=== PATIENT | female | born 1950 | race American Indian/Alaskan Native ===

== ENCOUNTER 2017-06-16 18:22 | Inpatient (IN) | payer OTHER, MEDICARE ==
[2017-06-16] MEDS ORDERED: PROVENTIL IH ONE (20:47)
[2017-06-16] MEDS ORDERED: ATROVENT IH ONE (20:47)
[2017-06-16] MEDS ORDERED: MAGNESIUM SULFATE 2GM/50ML 2 GM/50 ML BAG IV ONE (20:50)
[2017-06-16 22:23] LABS: Hemoglobin 10.5 gm/dl (10.1-14.3); Mean Corpuscular HGB Conc 33 % (30-34); Mean Corpuscular Hemoglobin 27 pg (28-32); Mean Corpuscular Volume 83 fl (79-97); Platelet Count 306 K/mm3 (140-440); Red Blood Count 3.84 M/mm3 (3.65-5.03); Red Cell Distribution Width 13.9 % (13.2-15.2)
--- NOTE | 2017-06-16 22:25 | XRay Report ---
FINAL REPORT PROCEDURE: Chest. TECHNIQUE: Portable AP view. HISTORY: Shortness of breath. COMPARISON: No prior studies are available for comparison. FINDINGS: The heart and mediastinum appear normal. There calcification in the aortic arch. The lungs are grossly clear. There is mild elevation of the left hemidiaphragm. The soft tissues and regional skeleton are unremarkable. IMPRESSION: No evidence of acute disease.
[2017-06-16 22:37] LABS: Calcium 7.9 mg/dL (8.4-10.2)
--- NOTE | 2017-06-16 22:50 | Emergency Department Report ---
ED Asthma HPI - General Chief Complaint: Adult Asthma Stated Complaint: EXACERBATION ASTHMA Time Seen by Provider: 06/16/17 20:35 Source: patient, EMS Mode of arrival: Stretcher Limitations: No Limitations - History of Present Illness Initial Comments: 67-year-old female past medical history asthma (denies previous intubations), diabetes, chronic renal insufficiency, and anemia presents with complaints of persistent wheezing and shortness of breath despite recent outpatient treatment. Patient was sent from [facility] for admission due to persistent asthma exacerbated. Patient was seen by the office on the treated with nebulized treatment and 5 day course of steroids. Patient be presented today without improvement and having persistent wheezing and dry cough. She received albuterol 10 mg and Atrovent 1 mg, 1 L normal saline, Solu-Medrol 125mg, azithromycin 500mg by mouth and IV Rocephin 1 g prior to arrival. Patient had no improvement and respiratory symptoms and required admission to the hospital. There were no beds at [facility] so patient was sent here to be admitted and for further treatment. - Related Data Home Medications Medication Instructions Recorded Confirmed Last Taken Diltiazem [CarDIZEM] 60 mg PO BID 06/16/17 06/16/17 Unknown Epoetin Bradley [Procrit] 40,000 unit IJ Q4W 06/16/17 06/16/17 Unknown Folic Acid [Folvite] 1 mg PO 4XW 06/16/17 06/16/17 Unknown HYDROcodone/APAP 7.5-325 [[place] 1 tab PO BID 06/16/17 06/16/17 Unknown 7.5-325 mg TAB] ISOSORBIDE MONOnitrate [Imdur ER] 30 mg PO DAILY 06/16/17 06/16/17 Unknown Spironolactone [Aldactone] 25 mg PO DAILY 06/16/17 06/16/17 Unknown Terazosin HCl 10 mg PO HS 06/16/17 06/16/17 Unknown hydrALAZINE [Apresoline TAB] 100 mg PO Q8H 06/16/17 06/16/17 Unknown Allergies Allergy/AdvReac Type Severity Reaction Status Date / Time No Known Allergies Allergy Unverified 06/16/17 20:29 ED Review of Systems ROS: Stated complaint: EXACERBATION ASTHMA Other details as noted in HPI Comment: All other systems reviewed and negative Other: Constitutional: No fevers chills Eyes: No eye pain visual changes ENT: No ear pain or throat pain Neck: Denies pain Respiratory: As per HPI Cardiovascular: Denies chest pain, palpitations, syncope GI: Denies abdominal pain, nausea, vomiting, diarrhea : Denies dysuria Musculoskeletal: Denies back pain, joint swelling Skin: Denies rash, lesions, erythema Neurologic: Denies headache, numbness, weakness Psychiatric: Denies suicidal ideation, hallucinations ED Past Medical Hx - Past Medical History Previous Medical History?: Yes Hx Hypertension: Yes Hx Congestive Heart Failure: Yes (diastolic chf/right heart failure EF 55% ) Hx Diabetes: Yes (2) Hx Renal Disease: Yes (chronic renal insuffency) Hx Asthma: Yes Additional medical history: anemia. Hypercholesteremia. Osteoarthritis. Vitamin D deficiency - Family History Family history: diabetes, hypertension - Social History Smoking Status: Former Smoker (quit in 1985) Substance Use Type: None - Medications Home Medications: Home Medications Medication Instructions Recorded Confirmed Last Taken Type Diltiazem [CarDIZEM] 60 mg PO BID 06/16/17 06/16/17 Unknown History Epoetin Bradley [Procrit] 40,000 unit IJ Q4W 06/16/17 06/16/17 Unknown History Folic Acid [Folvite] 1 mg PO 4XW 06/16/17 06/16/17 Unknown History HYDROcodone/APAP 7.5-325 [[place] 1 tab PO BID 06/16/17 06/16/17 Unknown History 7.5-325 mg TAB] ISOSORBIDE MONOnitrate [Imdur ER] 30 mg PO DAILY 06/16/17 06/16/17 Unknown History Spironolactone [Aldactone] 25 mg PO DAILY 06/16/17 06/16/17 Unknown History Terazosin HCl 10 mg PO HS 06/16/17 06/16/17 Unknown History hydrALAZINE [Apresoline TAB] 100 mg PO Q8H 06/16/17 06/16/17 Unknown History ED Physical Exam - General Limitations: No Limitations - Other Other exam information: General: No limitations, patient is alert in no acute distress Head exam: Atraumatic, normocephalic Eyes exam: Normal appearance ENT: Moist mucous membrane, normal oropharynx Neck exam: Normal inspection, full range of motion, no meningismus nontender Respiratory exam: Breathlessness while speaking, tachypnea, my associate muscle use, significant expiratory wheezing with fair air movement Cardiovascular: Normal rate and rhythm, normal heart sounds Abdomen: Soft, nondistended, and nontender, with normal bowel sounds, no rebound, or guarding Extremity: Full range of motion normal inspection no deformity, no calf tenderness or edema Back: Normal Inspection, full range of motion, no tenderness Neurologic: Alert, oriented x3, cranial nerves intact, no motor or sensory deficit Psychiatric: normal affect, normal mood Skin: Warm, dry, intact ED Course Vital Signs 06/16/17 06/16/17 06/16/17 20:29 20:30 21:35 Temperature 98.8 F 98.8 F Pulse Rate 67 67 Pulse Rate [ 70 Anterior Bilateral Throughout] Respiratory 22 22 Rate Respiratory 20 Rate [Anterior Bilateral Throughout] Blood Pressure 190/68 Blood Pressure 190/68 [Right] O2 Sat by Pulse 100 100 Oximetry - Reevaluation(s) Reevaluation #1: 06/16/17 23:15 O2 sat 100% on 2 L nasal cannula. Room air sat not documented on triage - Consultations Consultation #1: 06/16/17 22:[address] Younger with [facility]. Approved admission to the hospital here since no beds at their facility. States previous creatinine on record was 2.1 ED Medical Decision Making - Lab Data Result diagrams: 06/16/17 22:05 06/16/17 22:05 Lab Results 06/16/17 06/16/17 06/16/17 Range/Units 22:05 22:05 22:05 WBC 16.7 H (4.5-11.0) K/mm3 RBC 3.84 (3.65-5.03) M/mm3 Hgb 10.5 (10.1-14.3) gm/dl Hct 32.0 (30.3-42.9) % MCV 83 (79-97) fl MCH 27 L (28-32) pg MCHC 33 (30-34) % RDW 13.9 (13.2-15.2) % Plt Count 306 (140-440) K/mm3 Seg Neutrophils % Magneto Repairer Sodium 139 (137-145) mmol/L Potassium 4.2 (3.6-5.0) mmol/L Chloride 103.3 (98-107) mmol/L Carbon Dioxide 22 (22-30) mmol/L Anion Gap 18 mmol/L BUN 64 H (7-17) mg/dL Creatinine 1.8 H (0.7-1.2) mg/dL Estimated GFR 34 ml/min BUN/Creatinine Ratio 36 % Glucose 266 H (65-100) mg/dL Lactic Acid 0.70 (0.7-2.0) mmol/L Calcium 7.9 L (8.4-10.2) mg/dL - EKG Data EKG shows normal: axis - Radiology Data Radiology results: report reviewed (read by radiologist chest x-ray: No evidence of acute disease) - Medical Decision Making Persistent asthma exacerbation/status asthmaticus No improvement with steroids, magnesium, and nebs No infiltrate on chest x-ray Leukocytosis likely secondary to recent steroid Patient received Rocephin and azithromycin prior to arrival Blood cultures have been ordered and pending Plans admit to hospital for further treatment Admission Approved by [facility] physician Hospitalist informed Renal sufficiency Baseline 2.1 as reported by [facility] physician therefore improved today Elevated BUN patient does take torsemide Hypertension Chronic Asymptomatic currently Diabetes mild hyperglycemia - Differential Diagnosis pneumonia, bronchitis, asthma, CHF Critical Care Time: No Critical care attestation.: If time is entered above; I have spent that time in minutes in the direct care of this critically ill patient, excluding procedure time. ED Disposition Clinical Impression: Asthmatic bronchitis with status asthmaticus, HTN (hypertension), Diabetes, Renal insufficiency, Elevated BUN Disposition: OP ADMIT IP TO THIS HOSP Is pt being admited?: Yes Condition: Stable Time of Disposition: 22:50 (DR Garrison/hosp)
[2017-06-16] MEDS ORDERED: TYLENOL PO PRN (23:40)
[2017-06-16] MEDS ORDERED: D50W (25GM) Syringe IV PRN (23:40)
[2017-06-16] MEDS ORDERED: DULCOLAX PR PRN (23:40)
[2017-06-16] MEDS ORDERED: MILK OF MAGNESIA PO PRN (23:40)
[2017-06-16] MEDS ORDERED: ZOFRAN IV PRN (23:40)
--- NOTE | 2017-06-16 23:43 | History and Physical Report ---
History of Present Illness Date of examination: 06/16/17 History of present illness: 67-year-old woman with history of hypertension, diabetes, asthma, chronic renal disease was sent from [place] for evaluation of asthma. She was seen at the [place] facility on June 07 for shortness of breath and cough productive of brown phlegm. She was given nebulizer treatment and oral steroids and discharged to home. She completed her medication for 5 days, his symptoms worsened so she returned to [place] today for further evaluation Review Of Systems: Constitutional: no weight loss Ears, eyes, nose, mouth and throat: no nasal congestion, no nasal discharge, no sinus pressure, blurry vision, diplopia Neck: No neck pain or rigidity. Cardiovascular: + chest pain, palpitations Respiratory: No shortness of breath, cough Gastrointestinal: No abdominal pain, hematochezia Genitourinary : no dysuria, frequency , hematuria Musculoskeletal: no muscle ache Integumentary: no rash, no pruritis Neurological: no parathesias, focal weakness Endocrine: no cold or heat intolerance, no polyuria or polydipsia Hematologic/Lymphatic: no easy bruising, no easy bleeding, no gland swelling Allergic/Immunologic: no urticaria, no angioedema. PAST MEDICAL HISTORY:hypertension, diabetes, asthma, chronic renal disease PAST SURGICAL HISTORY:none FAMILY HISTORY:hypertension, diabetes SOCIAL HISTORY: Denies alcohol, tobacco or drug Medications and Allergies Allergies Allergy/AdvReac Type Severity Reaction Status Date / Time No Known Allergies Allergy Verified 06/16/17 23:45 Home Medications Medication Instructions Recorded Confirmed Last Taken Type Diltiazem [CarDIZEM] 60 mg PO BID 06/16/17 06/16/17 Unknown History Epoetin Bradley [Procrit] 40,000 unit IJ Q4W 06/16/17 06/16/17 Unknown History Folic Acid [Folvite] 1 mg PO 4XW 06/16/17 06/16/17 Unknown History HYDROcodone/APAP 7.5-325 [[place] 1 tab PO BID 06/16/17 06/16/17 Unknown History 7.5-325 mg TAB] ISOSORBIDE MONOnitrate [Imdur ER] 30 mg PO DAILY 06/16/17 06/16/17 Unknown History Spironolactone [Aldactone] 25 mg PO DAILY 06/16/17 06/16/17 Unknown History Terazosin HCl 10 mg PO HS 06/16/17 06/16/17 Unknown History hydrALAZINE [Apresoline TAB] 100 mg PO Q8H 06/16/17 06/16/17 Unknown History Active Meds: Active Medications Acetaminophen (Tylenol) 650 mg PO Q4H PRN PRN Reason: Pain MILD(1-3)/Fever >100.5/LÓPEZ Bisacodyl (Dulcolax) 10 mg CO QDAY PRN PRN Reason: Constipation unrelieved by MOM Dextrose (D50w (25gm) Syringe) 50 ml IV PRN PRN PRN Reason: Hypoglycemia Insulin Aspart (Novolog) 0 units SUB-Q ACHS RAY PRN Reason: Protocol Exam - Physical Exam Narrative exam: Gen. appearance: Patient lying in bed in no acute distress HEENT: Normocephalic/atraumatic, pupils equal round reactive to light, extra occular movement intact, no scleral icterus, no JVD or thyromegaly or nodule, neck is supple, mucous membrane moist, no erythema or exudate Heart: S1-S2, regular rate and rhythm Lungs: wheezingbilateral breathing comfortable Abdomen: Positive bowel sounds, nontender, nondistended, no organomegaly Extremities: No edema, cyanosis, clubbing Neuro:: Oriented 3 , cranial nerves II-12 intact, speech, motor intact Skin: No rash, nodules, warm dry - Constitutional Vitals: Temp Pulse Resp BP Pulse Ox 98.8 F 70 20 190/68 100 06/16/17 20:30 06/16/17 21:35 06/16/17 21:35 06/16/17 20:30 06/16/17 20:30 Results - Labs CBC & Chem 7: 06/16/17 22:05 06/16/17 22:05 Labs: Abnormal lab results 06/16/17 06/16/17 Range/Units 22:05 22:05 WBC 16.7 H (4.5-11.0) K/mm3 MCH 27 L (28-32) pg BUN 64 H (7-17) mg/dL Creatinine 1.8 H (0.7-1.2) mg/dL Glucose 266 H (65-100) mg/dL Calcium 7.9 L (8.4-10.2) mg/dL - Imaging and Cardiology EKG: image reviewed Chest x-ray: image reviewed Assessment and Plan Assessment COPD exacerbation with bronchitis Acute renal insufficiency on chronic Hypertension Diabetes type 2 Plan Admit to medicine Start high-dose IV steroids, nebulizer treatments, IV antibiotics Check fingersticks initiate insulin sliding scale Continue appropriate medications DVT prophylaxis
[2017-06-17 00:26] LABS: Band Neutrophils # (Manual) 0.3 K/mm3; Basophils % (Manual) 0 % (0.0-1.8); Eosinophils % (Manual) 0 % (0.0-4.3); Total Cells Counted 100
[2017-06-17 00:27] LABS: Anisocytosis 1+; Hypochromasia 1+
[2017-06-17] MEDS: NOVOLOG SUB-Q SCH ×4 (01:55→16:37)
[2017-06-17] MEDS: DUONEB *Not for PRN Use IH SCH ×4 (02:35→22:20)
[2017-06-17 05:37] LABS: Hematocrit 31.6 % (30.3-42.9); Hemoglobin 10.2 gm/dl (10.1-14.3); Mean Corpuscular HGB Conc 32 % (30-34); Mean Corpuscular Hemoglobin 27 pg (28-32); Mean Corpuscular Volume 84 fl (79-97); Platelet Count 296 K/mm3 (140-440); Red Blood Count 3.78 M/mm3 (3.65-5.03); Red Cell Distribution Width 14.1 % (13.2-15.2)
[2017-06-17 07:20] LABS: Band Neutrophils # (Manual) 0.4 K/mm3; Calcium 8.1 mg/dL (8.4-10.2); Eosinophils % (Manual) 0 % (0.0-4.3); Total Cells Counted 100
[2017-06-17 07:21] LABS: Anisocytosis 1+; Basophils % (Manual) 0 % (0.0-1.8); Hypochromasia 1+
[2017-06-17] MEDS ORDERED: ZITHROMAX 500 MG in NACL 0.9% 250ML 250 ML IV SCH (10:00)
[2017-06-17] MEDS ORDERED: PROCARDIA XL PO SCH (12:00)
[2017-06-17] MEDS: APRESOLINE PO SCH ×2 (12:02→21:33)
--- NOTE | 2017-06-17 15:00 | Consultation ---
History of Present Illness - Reason for Consult Consult date: 06/17/17 chronic renal failure Requesting physician: JULIO CESAR NEW - History of Present Illness 67-year-old woman with history of hypertension, diabetes, asthma, chronic renal disease was sent from [place] for evaluation of asthma. She was seen at the [place] facility on June 07 for shortness of breath and cough productive of brown phlegm. She was given nebulizer treatment and oral steroids and discharged to home. She completed her medication for 5 days, his symptoms worsened so she returned to [place] today for further evaluation Review Of Systems: Constitutional: no weight loss Ears, eyes, nose, mouth and throat: no nasal congestion, no nasal discharge, no sinus pressure, blurry vision, diplopia Neck: No neck pain or rigidity. Cardiovascular: + chest pain, palpitations Respiratory: No shortness of breath, cough Gastrointestinal: No abdominal pain, hematochezia Genitourinary : no dysuria, frequency , hematuria Musculoskeletal: no muscle ache Integumentary: no rash, no pruritis Neurological: no parathesias, focal weakness Endocrine: no cold or heat intolerance, no polyuria or polydipsia Hematologic/Lymphatic: no easy bruising, no easy bleeding, no gland swelling Allergic/Immunologic: no urticaria, no angioedema. PAST MEDICAL HISTORY:hypertension, diabetes, asthma, chronic renal disease PAST SURGICAL HISTORY:none FAMILY HISTORY:hypertension, diabetes SOCIAL HISTORY: Denies alcohol, tobacco or drug Medications and Allergies Allergies Allergy/AdvReac Type Severity Reaction Status Date / Time No Known Allergies Allergy Verified 06/16/17 23:45 Home Medications Medication Instructions Recorded Confirmed Last Taken Type Diltiazem [CarDIZEM] 60 mg PO BID 06/16/17 06/16/17 Unknown History Epoetin Bradley [Procrit] 40,000 unit IJ Q4W 06/16/17 06/16/17 Unknown History Folic Acid [Folvite] 1 mg PO 4XW 06/16/17 06/16/17 Unknown History HYDROcodone/APAP 7.5-325 [[place] 1 tab PO BID 06/16/17 06/16/17 Unknown History 7.5-325 mg TAB] ISOSORBIDE MONOnitrate [Imdur ER] 30 mg PO DAILY 06/16/17 06/16/17 Unknown History Spironolactone [Aldactone] 25 mg PO DAILY 06/16/17 06/16/17 Unknown History Terazosin HCl 10 mg PO HS 06/16/17 06/16/17 Unknown History hydrALAZINE [Apresoline TAB] 100 mg PO Q8H 06/16/17 06/16/17 Unknown History Active Meds: Active Medications Acetaminophen (Tylenol) 650 mg PO Q4H PRN PRN Reason: Pain MILD(1-3)/Fever >100.5/LÓPEZ Acetaminophen/Hydrocodone Bitart ([place] 7.5/325) 1 each PO BID [facility] Albuterol/Ipratropium (Duoneb *Not For Prn Use*) 1 ampul IH Q6HRT [facility] Last Admin: 06/17/17 14:22 Dose: Not Given Atorvastatin Calcium (Lipitor) 40 mg PO QHS [facility] Azithromycin (Zithromax) 500 mg PO QDAY [facility] Bisacodyl (Dulcolax) 10 mg HI QDAY PRN PRN Reason: Constipation unrelieved by MOM Carvedilol (Coreg) 25 mg PO BID [facility] Dextrose (D50w (25gm) Syringe) 50 ml IV PRN PRN PRN Reason: Hypoglycemia Diltiazem HCl (Cardizem) 60 mg PO BID [facility] Folic Acid (Folvite) 1 mg PO SuMoWeFr [facility] Hydralazine HCl (Apresoline) 100 mg PO Q8H [facility] Last Admin: 06/17/17 12:02 Dose: 100 mg Insulin Aspart (Novolog) 0 units SUB-Q ACHS [facility] PRN Reason: Protocol Last Admin: 06/17/17 12:00 Dose: 8 units Insulin Detemir (Levemir) 20 units SUB-Q QHS [facility] Isosorbide Mononitrate (Imdur) 30 mg PO DAILY [facility] Magnesium Hydroxide (Milk Of Magnesia) 30 ml PO Q4H PRN PRN Reason: Constipation Methylprednisolone Sodium Succinate (Solu-Medrol) 80 mg IV Q6HR [facility] Last Admin: 06/17/17 12:01 Dose: 80 mg Metolazone (Zaroxolyn) 5 mg PO QDAY [facility] Nifedipine (Procardia Xl) 90 mg PO QDAY [facility] Last Admin: 06/17/17 12:38 Dose: 90 mg Ondansetron HCl (Zofran) 4 mg IV Q8H PRN PRN Reason: N/V unrelieved by Reglan Prazosin HCl (Minipress) 5 mg PO Q12HR [facility] Spironolactone (Aldactone) 25 mg PO DAILY [facility] Torsemide (Demadex) 100 mg PO DAILY@0600 [facility] Exam - Vital Signs Vital signs: Vital Signs Resp Pulse Ox 22 100 06/16/17 20:00 06/16/17 20:00 - Physical Exam Narrative exam: Gen. appearance: Patient lying in bed in no acute distress HEENT: Normocephalic/atraumatic, pupils equal round reactive to light, extra occular movement intact, no scleral icterus, no JVD or thyromegaly or nodule, neck is supple, mucous membrane moist, no erythema or exudate Heart: S1-S2, regular rate and rhythm Lungs: wheezingbilateral breathing comfortable Abdomen: Positive bowel sounds, nontender, nondistended, no organomegaly Extremities: No edema, cyanosis, clubbing Neuro:: Oriented 3 , cranial nerves II-12 intact, speech, motor intact Skin: No rash, nodules, warm dry Results - Lab Results 06/17/17 05:02 06/17/17 05:02 Most recent lab results Calcium 8.1 mg/dL (8.4-10.2) L 06/17/17 05:02 Assessment and Plan Impression: * COPD exacerbation with bronchitis * Acute renal insufficiency on chronic * Hypertension * Diabetes type 2 Plan: * cr is at baseline * strict i/os * needs better BP and DM control * daily lytes * endorses history of cardiomyopathy, will check 2 d echo * avoid nephrotoxins * supportive care
[2017-06-17] MEDS ORDERED: APRESOLINE IV PRN (15:56)
--- NOTE | 2017-06-17 15:58 | Progress Note ---
Assessment and Plan Assessment and plan: 67-year-old woman with history of hypertension, diabetes, asthma, chronic renal disease was sent from [place] for evaluation of asthma for Ayaka Arizmendi of treatment that was done on June 07 at a [facility] facility. She denied any fever, generalized body pain and malaise. Although she appears lethargic on admission. Acute on chronic respiratory failure * Continue nebulizer treatment. Peak flow meter. Obtain pulmonary evaluation with an O2 as tolerated Asthma exacerbation with bronchitis * As noted above. Taper steroids. Acute kidney injury on chronic kidney disease likely secondary to vasomotor nephropathy ? Review of records did not indicate her baseline to me. * We'll obtain original evaluation. Patient reports she does not have a delivery clerk Hypertensive urgency * Resume home medications. Hydralazine when necessary. Diabetes mellitus with hyperglycemia * Likely elevated on elevated due to steroids. We'll hold oral and hypoglycemic agents and start patient on long-acting insulin. In addition to sliding scale Stable congestive heart failure patient unsure if systolic or diastolic * We'll obtain echocardiogram for further evaluation. Chronic opiate dependence syndrome * Resume home. Medications DVT and GI prophylaxis Plan of care discussed in detail with the patient's she verbalized understanding. History Interval history: Patient seen and examined this morning in no acute distress reports generalized body ache. She is chronically on pain medication. She reports mild improvement of shortness of breath. Hospitalist Physical - Physical exam Narrative exam: VITAL SIGNS: Reviewed. GENERAL: The patient appeared well nourished and normally developed. Otherwise lethargic appearing Vital signs as documented. HEAD: No signs of head trauma. EYES: Pupils are equal. Extraocular motions intact. EARS: Hearing grossly intact. MOUTH: Oropharynx is normal. NECK: No adenopathy, no JVD. CHEST: Chest with expiratory wheezing sounds bilaterally. No, rales, or rhonchi. CARDIAC: Regular rate and rhythm. S1 and S2, without murmurs, gallops, or rubs. VASCULAR: No Edema. Peripheral pulses normal and equal in all extremities. ABDOMEN: Soft, without detectable tenderness. No sign of distention. No rebound or guarding, and no masses palpated. Bowel Sounds normal. MUSCULOSKELETAL: Good range of motion of all major joints. Extremities without clubbing, cyanosis or edema. NEUROLOGIC EXAM: Alert and oriented x 3. No focal sensory or strength deficits. Speech normal. Follows commands. PSYCHIATRIC: Mood normal. SKIN: No rash or lesions. - Constitutional Vitals: Temp Pulse Resp BP Pulse Ox 98.6 F 99 H 20 198/82 100 06/17/17 13:49 06/17/17 13:49 06/17/17 13:49 06/17/17 13:49 06/17/17 13:49 Results - Labs CBC & Chem 7: 06/17/17 05:02 06/17/17 05:02 Labs: Laboratory Last Values WBC 19.0 K/mm3 (4.5-11.0) H 06/17/17 05:02 RBC 3.78 M/mm3 (3.65-5.03) 06/17/17 05:02 Hgb 10.2 gm/dl (10.1-14.3) 06/17/17 05:02 Hct 31.6 % (30.3-42.9) 06/17/17 05:02 MCV 84 fl (79-97) 06/17/17 05:02 MCH 27 pg (28-32) L 06/17/17 05:02 MCHC 32 % (30-34) 06/17/17 05:02 RDW 14.1 % (13.2-15.2) 06/17/17 05:02 Plt Count 296 K/mm3 (140-440) 06/17/17 05:02 Add Manual Diff Complete 06/17/17 05:02 Total Counted 100 06/17/17 05:02 Seg Neutrophils % Electric Tripper Machine Operator 06/17/17 05:02 Seg Neuts % (Manual) 84.0 % (40.0-70.0) H 06/17/17 05:02 Band Neutrophils % 2.0 % 06/17/17 05:02 Lymphocytes % (Manual) 12.0 % (13.4-35.0) L 06/17/17 05:02 Reactive Lymphs % (Man) 0 % 06/17/17 05:02 Monocytes % (Manual) 2.0 % (0.0-7.3) 06/17/17 05:02 Eosinophils % (Manual) 0 % (0.0-4.3) 06/17/17 05:02 Basophils % (Manual) 0 % (0.0-1.8) 06/17/17 05:02 Metamyelocytes % 0 % 06/17/17 05:02 Myelocytes % 0 % 06/17/17 05:02 Promyelocytes % 0 % 06/17/17 05:02 Blast Cells % 0 % 06/17/17 05:02 Nucleated RBC % Not Reportable 06/17/17 05:02 Seg Neutrophils # Man 16.0 K/mm3 (1.8-7.7) H 06/17/17 05:02 Band Neutrophils # 0.4 K/mm3 06/17/17 05:02 Lymphocytes # (Manual) 2.3 K/mm3 (1.2-5.4) 06/17/17 05:02 Abs React Lymphs (Man) 0.0 K/mm3 06/17/17 05:02 Monocytes # (Manual) 0.4 K/mm3 (0.0-0.8) 06/17/17 05:02 Eosinophils # (Manual) 0.0 K/mm3 (0.0-0.4) 06/17/17 05:02 Basophils # (Manual) 0.0 K/mm3 (0.0-0.1) 06/17/17 05:02 Metamyelocytes # 0.0 K/mm3 06/17/17 05:02 Myelocytes # 0.0 K/mm3 06/17/17 05:02 Promyelocytes # 0.0 K/mm3 06/17/17 05:02 Blast Cells # 0.0 K/mm3 06/17/17 05:02 WBC Morphology Not Reportable 06/17/17 05:02 Hypersegmented Neuts Not Reportable 06/17/17 05:02 Hyposegmented Neuts Not Reportable 06/17/17 05:02 Hypogranular Neuts Not Reportable 06/17/17 05:02 Smudge Cells Not Reportable 06/17/17 05:02 Toxic Granulation Not Reportable 06/17/17 05:02 Toxic Vacuolation Not Reportable 06/17/17 05:02 Dohle Bodies Not Reportable 06/17/17 05:02 Pelger-Huet Anomaly Not Reportable 06/17/17 05:02 Jacinto Rods Not Reportable 06/17/17 05:02 Platelet Estimate Appears normal 06/17/17 05:02 Clumped Platelets Not Reportable 06/17/17 05:02 Plt Clumps, EDTA Not Reportable 06/17/17 05:02 Large Platelets Not Reportable 06/17/17 05:02 Giant Platelets Not Reportable 06/17/17 05:02 Platelet Satelliting Not Reportable 06/17/17 05:02 Plt Morphology Comment Not Reportable 06/17/17 05:02 RBC Morphology Not Reportable 06/17/17 05:02 Dimorphic RBCs Not Reportable 06/17/17 05:02 Polychromasia Not Reportable 06/17/17 05:02 Hypochromasia 1+ 06/17/17 05:02 Poikilocytosis Not Reportable 06/17/17 05:02 Anisocytosis 1+ 06/17/17 05:02 Microcytosis Not Reportable 06/17/17 05:02 Macrocytosis Not Reportable 06/17/17 05:02 Spherocytes Not Reportable 06/17/17 05:02 Pappenheimer Bodies Not Reportable 06/17/17 05:02 Sickle Cells Not Reportable 06/17/17 05:02 Target Cells Not Reportable 06/17/17 05:02 Tear Drop Cells Not Reportable 06/17/17 05:02 Ovalocytes Not Reportable 06/17/17 05:02 Helmet Cells Not Reportable 06/17/17 05:02 [place] Bodies Not Reportable 06/17/17 05:02 [place] Rings Not Reportable 06/17/17 05:02 [place]ino Cells Not Reportable 06/17/17 05:02 Bite Cells Not Reportable 06/17/17 05:02 Crenated Cell Not Reportable 06/17/17 05:02 Elliptocytes Not Reportable 06/17/17 05:02 Acanthocytes (Spur) Not Reportable 06/17/17 05:02 Rouleaux Not Reportable 06/17/17 05:02 Hemoglobin C Crystals Not Reportable 06/17/17 05:02 Schistocytes Not Reportable 06/17/17 05:02 Malaria parasites Not Reportable 06/17/17 05:02 Dc Bodies Not Reportable 06/17/17 05:02 Hem Pathologist Commnt No 06/17/17 05:02 Sodium 139 mmol/L (137-145) 06/17/17 05:02 Potassium 4.4 mmol/L (3.6-5.0) 06/17/17 05:02 Chloride 99.6 mmol/L (98-107) 06/17/17 05:02 Carbon Dioxide 19 mmol/L (22-30) L 06/17/17 05:02 Anion Gap 25 mmol/L 06/17/17 05:02 BUN 66 mg/dL (7-17) H 06/17/17 05:02 Creatinine 1.9 mg/dL (0.7-1.2) H 06/17/17 05:02 Estimated GFR 32 ml/min 06/17/17 05:02 BUN/Creatinine Ratio 35 % 06/17/17 05:02 Glucose 356 mg/dL (65-100) H 06/17/17 05:02 POC Glucose 318 (70-105) H 06/17/17 11:03 Lactic Acid 0.70 mmol/L (0.7-2.0) 06/16/17 22:05 Calcium 8.1 mg/dL (8.4-10.2) L 06/17/17 05:02 - Imaging and Cardiology Chest x-ray: image reviewed (no acute pathology noted)
--- NOTE | 2017-06-17 16:04 | Consultation ---
History of Present Illness Consult date: 06/17/17 Requesting physician: LOBITO MULLER Consult reason: congestive heart failure History of present illness: The pt is a 67-year-old woman with a past medical history significant for heart failure in 07/2016, hypertension, diabetes, asthma, CKD. She is previously unknown to our practice. She is a [facility] pt and denies seeing a crystal attacher regularly. She presented with c/o "asthma attack", fever, chills and productive cough since 06/07/2017. She reports that she first presented to a [facility] facility on 06/07 after her first "asthma attack" and was given breathing treatments and oral steroids and sent home. However, her symptoms did not improve and thus she presented to a [facility] facility again yesterday where she reports that she has a CXR and was referred to [facility] for further eval/ management. Additionally, she c/o a bout of chest pain earlier today after she ate lunch. She describes the chest pain as a substernal and epigastric stabbing pain which was relieved by drinking hot tea. She denies any palpitations, n/v, diaphoresis, dizziness or syncope. Past History Past Medical History: diabetes, hypertension, other (asthma; CKD) Social history: smoking (former). denies: alcohol abuse, prescription drug abuse Medications and Allergies Allergies Allergy/AdvReac Type Severity Reaction Status Date / Time No Known Allergies Allergy Verified 06/16/17 23:45 Home Medications Medication Instructions Recorded Confirmed Last Taken Type Diltiazem [CarDIZEM] 60 mg PO BID 06/16/17 06/16/17 Unknown History Epoetin Bradley [Procrit] 40,000 unit IJ Q4W 06/16/17 06/16/17 Unknown History Folic Acid [Folvite] 1 mg PO 4XW 06/16/17 06/16/17 Unknown History HYDROcodone/APAP 7.5-325 [[place] 1 tab PO BID 06/16/17 06/16/17 Unknown History 7.5-325 mg TAB] ISOSORBIDE MONOnitrate [Imdur ER] 30 mg PO DAILY 06/16/17 06/16/17 Unknown History Spironolactone [Aldactone] 25 mg PO DAILY 06/16/17 06/16/17 Unknown History Terazosin HCl 10 mg PO HS 06/16/17 06/16/17 Unknown History hydrALAZINE [Apresoline TAB] 100 mg PO Q8H 06/16/17 06/16/17 Unknown History Active Meds: Active Medications Acetaminophen (Tylenol) 650 mg PO Q4H PRN PRN Reason: Pain MILD(1-3)/Fever >100.5/LÓPEZ Acetaminophen/Hydrocodone Bitart ([place] 7.5/325) 1 each PO BID [facility] Albuterol/Ipratropium (Duoneb *Not For Prn Use*) 1 ampul IH Q6HRT [facility] Last Admin: 06/17/17 14:22 Dose: Not Given Atorvastatin Calcium (Lipitor) 40 mg PO QHS [facility] Azithromycin (Zithromax) 500 mg PO QDAY [facility] Bisacodyl (Dulcolax) 10 mg [place] QDAY PRN PRN Reason: Constipation unrelieved by MOM Carvedilol (Coreg) 25 mg PO BID [facility] Dextrose (D50w (25gm) Syringe) 50 ml IV PRN PRN PRN Reason: Hypoglycemia Diltiazem HCl (Cardizem) 60 mg PO BID [facility] Folic Acid (Folvite) 1 mg PO SuMoWeFr [facility] Hydralazine HCl (Apresoline) 100 mg PO Q8H [facility] Last Admin: 06/17/17 12:02 Dose: 100 mg Hydralazine HCl (Apresoline) 10 mg IV Q4HR PRN PRN Reason: Hypertension Insulin Aspart (Novolog) 0 units SUB-Q ACHS [facility] PRN Reason: Protocol Last Admin: 06/17/17 12:00 Dose: 8 units Insulin Detemir (Levemir) 20 units SUB-Q QHS [facility] Isosorbide Mononitrate (Imdur) 30 mg PO DAILY [facility] Methylprednisolone Sodium Succinate (Solu-Medrol) 80 mg IV Q6HR [facility] Last Admin: 06/17/17 12:01 Dose: 80 mg Metolazone (Zaroxolyn) 5 mg PO QDAY [facility] Nifedipine (Procardia Xl) 90 mg PO QDAY [facility] Last Admin: 06/17/17 12:38 Dose: 90 mg Ondansetron HCl (Zofran) 4 mg IV Q8H PRN PRN Reason: N/V unrelieved by Reglan Prazosin HCl (Minipress) 5 mg PO Q12HR [facility] Spironolactone (Aldactone) 25 mg PO DAILY [facility] Torsemide (Demadex) 100 mg PO DAILY@0600 [facility] Review of Systems Constitutional: fever, chills, no weight loss, no weight gain Ears, nose, mouth and throat: no ear pain, no nose pain, no sinus pressure, no sinus pain Cardiovascular: chest pain, shortness of breath, dyspnea on exertion, high blood pressure, no orthopnea, no palpitations, no rapid/irregular heart beat, no edema, no syncope, no lightheadedness, no paroxysmal nocturnal dyspnea, no leg edema Respiratory: cough with sputum, shortness of breath, dyspnea on exertion, wheezing, no pain on inspiration Gastrointestinal: no abdominal pain, no nausea, no vomiting, no diarrhea, no constipation, no change in bowel habits Genitourinary Female: no pelvic pain, no flank pain, no dysuria, no urinary frequency, no urgency Musculoskeletal: no neck stiffness, no neck pain, no shooting arm pain, no arm numbness/tingling, no low back pain, no shooting leg pain, no leg numbness/ tingling, no redness of joints Integumentary: no rash, no pruritis, no redness, no sores, no wounds Neurological: no head injury, no paralysis, no weakness, no parathesias, no numbness, no tingling, no seizures, no syncope Psychiatric: no anxiety Endocrine: no cold intolerance, no heat intolerance Hematologic/Lymphatic: no easy bruising, no easy bleeding Allergic/Immunologic: wheezing, no urticaria Physical Examination Vital Signs Resp Pulse Ox 22 100 06/16/17 20:00 06/16/17 20:00 General appearance: no acute distress HEENT: Positive: PERRL, Normocephaly, Mucus Membranes Moist Neck: Positive: neck supple, trachea midline Cardiac: Positive: Reg Rate and Rhythm, S1/S2, Systolic Murmur Lungs: Positive: Decreased Breath Sounds Neuro: Positive: Grossly Intact, Cranial Nerve 2-12 Intact Abdomen: Positive: Soft. Negative: Tender Skin: Positive: Clear. Negative: Rash, Wound Musculoskeletal: No Fluid Collection, No Pain, Normal Range of Motion Extremities: Absent: edema Results 06/17/17 05:02 06/17/17 05:02 CBC 06/16/17 06/17/17 Range/Units 22:05 05:02 WBC 16.7 H 19.0 H (4.5-11.0) K/mm3 RBC 3.84 3.78 (3.65-5.03) M/mm3 Hgb 10.5 10.2 (10.1-14.3) gm/dl Hct 32.0 31.6 (30.3-42.9) % Plt Count 306 296 (140-440) K/mm3 Comprehensive Metabolic Panel 06/16/17 06/17/17 Range/Units 22:05 05:02 Sodium 139 139 (137-145) mmol/L Potassium 4.2 4.4 (3.6-5.0) mmol/L Chloride 103.3 99.6 (98-107) mmol/L Carbon Dioxide 22 19 L (22-30) mmol/L BUN 64 H 66 H (7-17) mg/dL Creatinine 1.8 H 1.9 H (0.7-1.2) mg/dL Glucose 266 H 356 H (65-100) mg/dL Calcium 7.9 L 8.1 L (8.4-10.2) mg/dL - Imaging and Cardiology Echo: pending EKG: pending Assessment and Plan Assessment: Asthma exacerbation with bronchitis Chest pain, atypical - transient and currently resolved; ECG pending Hypertensive urgency DM MARCELO on CKD H/o heart failure in 07/2016 Plan: Obtain ECG. No current clinical evidence of acutely decompensated heart failure. Await echo. Optimize anti-hypertensive regimen. D/c nifedipine given concurrent usage with cardizem. Assessment and plan reviewed with pt and pt's family at bedside. The patient has been seen in conjunction with Dr. Iverson who agrees with the assessment and plan of care.
[2017-06-17] MEDS ORDERED: NON-FORMULARY (Terazosin Hcl [Terazosin Hcl] 10 MG) PO SCH (22:00)
[2017-06-17] MEDS: COREG PO SCH (22:34)
[2017-06-17] MEDS: CARDIZEM PO SCH (22:35)
[2017-06-17] MEDS: MINIPRESS PO SCH (22:36)
[2017-06-17] MEDS: LEVEMIR SUB-Q SCH (22:37)
[2017-06-17] MEDS: NORCO 7.5/325 PO SCH (22:38)
[2017-06-18] MEDS: DUONEB *Not for PRN Use IH SCH ×4 (03:24→22:10)
[2017-06-18] MEDS: APRESOLINE PO SCH ×3 (05:00→23:36)
[2017-06-18] MEDS ORDERED: DEMADEX PO SCH (06:00)
[2017-06-18 06:22] LABS: Hematocrit 29.5 % (30.3-42.9); Hemoglobin 9.6 gm/dl (10.1-14.3); Mean Corpuscular HGB Conc 33 % (30-34); Mean Corpuscular Hemoglobin 28 pg (28-32); Mean Corpuscular Volume 84 fl (79-97); Platelet Count 270 K/mm3 (140-440)
[2017-06-18 06:42] LABS: Calcium 7.9 mg/dL (8.4-10.2)
[2017-06-18] MEDS ORDERED: NACL 0.9% 1000 ML 1,000 ML IV SCH ×2 (08:00→22:00)
--- NOTE | 2017-06-18 08:03 | Progress Note ---
Assessment and Plan Assessment and plan: 67-year-old woman with history of hypertension, diabetes, asthma, chronic renal disease was sent from [place] for evaluation of asthma for Ayaka Arizmendi of treatment that was done on June 07 at a [place] facility. She denied any fever, generalized body pain and malaise. Although she appears lethargic on admission. Acute on chronic respiratory failure * Continue nebulizer treatment. Peak flow meter. Obtain pulmonary evaluation with an O2 as tolerated Asthma exacerbation with bronchitis * As noted above. Taper steroids. * Pulmonary input noted * Will need LABA/ICS and outpatient pulmonary evaluation Acute kidney injury on chronic kidney disease likely secondary to vasomotor nephropathy * Worse this morning, Will hold Torsemide, aldactone, * Start on gentle hydration Check labs later today and in am * Ensure to review med recs prior to discharge, as home medications appear not to be most current * Plugman following Hypertensive urgency * Resume home medications. Hydralazine when necessary. Diabetes mellitus with hyperglycemia * Likely elevated on elevated due to steroids. We'll hold oral and hypoglycemic agents and start patient on long-acting insulin. In addition to sliding scale Stable congestive heart failure patient unsure if systolic or diastolic * We'll obtain echocardiogram for further evaluation. * Float Phlebotomist input noted. Chronic opiate dependence syndrome * Resume home. Medications DVT and GI prophylaxis Plan of care discussed in detail with the patient's she verbalized understanding. History Interval history: Patient seen and examined this morning in no acute distress some improvement Hospitalist Physical - Physical exam Narrative exam: VITAL SIGNS: Reviewed. GENERAL: The patient appeared well nourished and normally developed. Otherwise lethargic appearing Vital signs as documented. HEAD: No signs of head trauma. EYES: Pupils are equal. Extraocular motions intact. EARS: Hearing grossly intact. MOUTH: Oropharynx is normal. NECK: No adenopathy, no JVD. CHEST: Chest with expiratory wheezing sounds bilaterally. No, rales, or rhonchi. CARDIAC: Regular rate and rhythm. S1 and S2, without murmurs, gallops, or rubs. VASCULAR: No Edema. Peripheral pulses normal and equal in all extremities. ABDOMEN: Soft, without detectable tenderness. No sign of distention. No rebound or guarding, and no masses palpated. Bowel Sounds normal. MUSCULOSKELETAL: Good range of motion of all major joints. Extremities without clubbing, cyanosis or edema. NEUROLOGIC EXAM: Alert and oriented x 3. No focal sensory or strength deficits. Speech normal. Follows commands. PSYCHIATRIC: Mood normal. SKIN: No rash or lesions. - Constitutional Vitals: Temp Pulse Resp BP Pulse Ox 97.6 F 74 18 126/47 98 06/18/17 07:05 06/18/17 07:45 06/18/17 07:45 06/18/17 07:05 06/18/17 07:36 General appearance: Present: no acute distress Results - Labs CBC & Chem 7: 06/18/17 05:14 06/18/17 16:02 Labs: Laboratory Last Values WBC 27.7 K/mm3 (4.5-11.0) H 06/18/17 05:14 RBC 3.50 M/mm3 (3.65-5.03) L 06/18/17 05:14 Hgb 9.6 gm/dl (10.1-14.3) L 06/18/17 05:14 Hct 29.5 % (30.3-42.9) L 06/18/17 05:14 MCV 84 fl (79-97) 06/18/17 05:14 MCH 28 pg (28-32) 06/18/17 05:14 MCHC 33 % (30-34) 06/18/17 05:14 RDW 14.0 % (13.2-15.2) 06/18/17 05:14 Plt Count 270 K/mm3 (140-440) 06/18/17 05:14 Add Manual Diff Complete 06/17/17 05:02 Total Counted 100 06/17/17 05:02 Seg Neutrophils % Detective [employer] Section 06/17/17 05:02 Seg Neuts % (Manual) 84.0 % (40.0-70.0) H 06/17/17 05:02 Band Neutrophils % 2.0 % 06/17/17 05:02 Lymphocytes % (Manual) 12.0 % (13.4-35.0) L 06/17/17 05:02 Reactive Lymphs % (Man) 0 % 06/17/17 05:02 Monocytes % (Manual) 2.0 % (0.0-7.3) 06/17/17 05:02 Eosinophils % (Manual) 0 % (0.0-4.3) 06/17/17 05:02 Basophils % (Manual) 0 % (0.0-1.8) 06/17/17 05:02 Metamyelocytes % 0 % 06/17/17 05:02 Myelocytes % 0 % 06/17/17 05:02 Promyelocytes % 0 % 06/17/17 05:02 Blast Cells % 0 % 06/17/17 05:02 Nucleated RBC % Not Reportable 06/17/17 05:02 Seg Neutrophils # Man 16.0 K/mm3 (1.8-7.7) H 06/17/17 05:02 Band Neutrophils # 0.4 K/mm3 06/17/17 05:02 Lymphocytes # (Manual) 2.3 K/mm3 (1.2-5.4) 06/17/17 05:02 Abs React Lymphs (Man) 0.0 K/mm3 06/17/17 05:02 Monocytes # (Manual) 0.4 K/mm3 (0.0-0.8) 06/17/17 05:02 Eosinophils # (Manual) 0.0 K/mm3 (0.0-0.4) 06/17/17 05:02 Basophils # (Manual) 0.0 K/mm3 (0.0-0.1) 06/17/17 05:02 Metamyelocytes # 0.0 K/mm3 06/17/17 05:02 Myelocytes # 0.0 K/mm3 06/17/17 05:02 Promyelocytes # 0.0 K/mm3 06/17/17 05:02 Blast Cells # 0.0 K/mm3 06/17/17 05:02 WBC Morphology Not Reportable 06/17/17 05:02 Hypersegmented Neuts Not Reportable 06/17/17 05:02 Hyposegmented Neuts Not Reportable 06/17/17 05:02 Hypogranular Neuts Not Reportable 06/17/17 05:02 Smudge Cells Not Reportable 06/17/17 05:02 Toxic Granulation Not Reportable 06/17/17 05:02 Toxic Vacuolation Not Reportable 06/17/17 05:02 Dohle Bodies Not Reportable 06/17/17 05:02 Pelger-Huet Anomaly Not Reportable 06/17/17 05:02 Jacinto Rods Not Reportable 06/17/17 05:02 Platelet Estimate Appears normal 06/17/17 05:02 Clumped Platelets Not Reportable 06/17/17 05:02 Plt Clumps, EDTA Not Reportable 06/17/17 05:02 Large Platelets Not Reportable 06/17/17 05:02 Giant Platelets Not Reportable 06/17/17 05:02 Platelet Satelliting Not Reportable 06/17/17 05:02 Plt Morphology Comment Not Reportable 06/17/17 05:02 RBC Morphology Not Reportable 06/17/17 05:02 Dimorphic RBCs Not Reportable 06/17/17 05:02 Polychromasia Not Reportable 06/17/17 05:02 Hypochromasia 1+ 06/17/17 05:02 Poikilocytosis Not Reportable 06/17/17 05:02 Anisocytosis 1+ 06/17/17 05:02 Microcytosis Not Reportable 06/17/17 05:02 Macrocytosis Not Reportable 06/17/17 05:02 Spherocytes Not Reportable 06/17/17 05:02 Pappenheimer Bodies Not Reportable 06/17/17 05:02 Sickle Cells Not Reportable 06/17/17 05:02 Target Cells Not Reportable 06/17/17 05:02 Tear Drop Cells Not Reportable 06/17/17 05:02 Ovalocytes Not Reportable 06/17/17 05:02 Helmet Cells Not Reportable 06/17/17 05:02 [place] Bodies Not Reportable 06/17/17 05:02 [place] Rings Not Reportable 06/17/17 05:02 Pino Cells Not Reportable 06/17/17 05:02 Bite Cells Not Reportable 06/17/17 05:02 Crenated Cell Not Reportable 06/17/17 05:02 Elliptocytes Not Reportable 06/17/17 05:02 Acanthocytes (Spur) Not Reportable 06/17/17 05:02 Rouleaux Not Reportable 06/17/17 05:02 Hemoglobin C Crystals Not Reportable 06/17/17 05:02 Schistocytes Not Reportable 06/17/17 05:02 Malaria parasites Not Reportable 06/17/17 05:02 Dc Bodies Not Reportable 06/17/17 05:02 Hem Pathologist Commnt No 06/17/17 05:02 Sodium 140 mmol/L (137-145) 06/18/17 05:14 Potassium 4.6 mmol/L (3.6-5.0) 06/18/17 05:14 Chloride 103.4 mmol/L (98-107) 06/18/17 05:14 Carbon Dioxide 21 mmol/L (22-30) L 06/18/17 05:14 Anion Gap 20 mmol/L 06/18/17 05:14 BUN 76 mg/dL (7-17) H 06/18/17 05:14 Creatinine 2.5 mg/dL (0.7-1.2) H 06/18/17 05:14 Estimated GFR 23 ml/min 06/18/17 05:14 BUN/Creatinine Ratio 30 % 06/18/17 05:14 Glucose 210 mg/dL (65-100) H 06/18/17 05:14 POC Glucose 204 (70-105) H 06/18/17 07:54 Lactic Acid 0.70 mmol/L (0.7-2.0) 06/16/17 22:05 Calcium 7.9 mg/dL (8.4-10.2) L 06/18/17 05:14
[2017-06-18] MEDS: NOVOLOG SUB-Q SCH ×3 (08:05→18:08)
--- NOTE | 2017-06-18 08:48 | Progress Note ---
Assessment and Plan Impression: * COPD exacerbation with bronchitis * Acute renal insufficiency on chronic * Hypertension * Diabetes type 2 Plan: * cr was at baseline, rise likely due to over diureisis, stop diuretics today * strict i/os * daily lytes * needs better BP and DM control--bp better today * daily lytes * endorses history of cardiomyopathy, will check 2 d echo--cards following * avoid nephrotoxins * supportive care Subjective Date of service: 06/18/17 Principal diagnosis: munira on ckd Interval history: resting well in bed today Objective - Exam Narrative Exam: Gen. appearance: Patient lying in bed in no acute distress HEENT: Normocephalic/atraumatic, pupils equal round reactive to light, extra occular movement intact, no scleral icterus, no JVD or thyromegaly or nodule, neck is supple, mucous membrane moist, no erythema or exudate Heart: S1-S2, regular rate and rhythm Lungs: wheezingbilateral breathing comfortable Abdomen: Positive bowel sounds, nontender, nondistended, no organomegaly Extremities: No edema, cyanosis, clubbing Neuro:: Oriented 3 , cranial nerves II-12 intact, speech, motor intact Skin: No rash, nodules, warm dry - Vital Signs Vital signs: Vital Signs - 12hr 06/17/17 06/17/17 06/17/17 22:00 22:20 22:32 Temperature Pulse Rate Pulse Rate [ 77 76 Anterior Bilateral Throughout] Respiratory 18 Rate Respiratory 18 18 Rate [Anterior Bilateral Throughout] Blood Pressure O2 Sat by Pulse 100 Oximetry 06/17/17 06/17/17 06/17/17 22:34 22:35 22:36 Temperature Pulse Rate 98 H 98 H 98 H Pulse Rate [ Anterior Bilateral Throughout] Respiratory Rate Respiratory Rate [Anterior Bilateral Throughout] Blood Pressure 162/56 162/56 162/56 O2 Sat by Pulse Oximetry 06/18/17 06/18/17 06/18/17 03:24 03:36 05:56 Temperature 98.1 F Pulse Rate 59 L Pulse Rate [ 72 74 Anterior Bilateral Throughout] Respiratory 18 Rate Respiratory 16 18 Rate [Anterior Bilateral Throughout] Blood Pressure 134/46 O2 Sat by Pulse 98 Oximetry 06/18/17 06/18/17 06/18/17 07:05 07:36 07:45 Temperature 97.6 F Pulse Rate 57 L Pulse Rate [ 70 74 Anterior Bilateral Throughout] Respiratory 20 Rate Respiratory 18 18 Rate [Anterior Bilateral Throughout] Blood Pressure 126/47 O2 Sat by Pulse 99 98 Oximetry - Lab 06/18/17 05:14 06/18/17 05:14 Most recent lab results Calcium 7.9 mg/dL (8.4-10.2) L 06/18/17 05:14
[2017-06-18] MEDS ORDERED: ALDACTONE PO SCH (10:00)
[2017-06-18] MEDS ORDERED: ZAROXOLYN PO SCH (10:00)
[2017-06-18] MEDS: CARDIZEM PO SCH ×2 (10:14→23:54)
[2017-06-18] MEDS: COREG PO SCH ×2 (10:14→23:54)
[2017-06-18] MEDS: FOLVITE PO SCH (10:14)
[2017-06-18] MEDS: MINIPRESS PO SCH ×2 (10:17→23:57)
[2017-06-18] MEDS: IMDUR PO SCH (10:18)
[2017-06-18] MEDS: ZITHROMAX PO SCH (10:18)
[2017-06-18] MEDS: NORCO 7.5/325 PO SCH ×2 (10:20→23:54)
--- NOTE | 2017-06-18 10:29 | Progress Note ---
Assessment and Plan Assessment: Asthma exacerbation with bronchitis Chest pain, atypical - transient and currently resolved; ECG pending Hypertensive urgency DM MARCELO on CKD H/o heart failure in 07/2016 Plan: Await echo. Assessment and plan reviewed with pt and pt's family at bedside. The patient has been seen in conjunction with Dr. Iverson who agrees with the assessment and plan of care. Subjective Date of service: 06/18/17 Principal diagnosis: asthma exac Interval history: pt resting comfortably in bed, states SOB improving. underwent echo this AM. no c/o chest pain overnight. BPs improved. Objective Last Vital Signs Temp 97.6 F 06/18/17 07:05 Pulse 59 L 06/18/17 10:18 Resp 18 06/18/17 07:45 BP 148/51 06/18/17 10:18 Pulse Ox 98 06/18/17 07:36 - Physical Examination General: No Apparent Distress HEENT: Positive: PERRL, Normocephaly, Mucus Membranes Moist Neck: Positive: neck supple, trachea midline Cardiac: Positive: Reg Rate and Rhythm, S1/S2 Lungs: Positive: Decreased Breath Sounds Neuro: Positive: Grossly Intact, Cranial Nerve 2-12 Intact Abdomen: Positive: Soft. Negative: Tender Skin: Positive: Clear. Negative: Rash, Wound Musculoskeletal: No Fluid Collection, No Pain, Normal Range of Motion Extremities: Absent: edema - Labs and Meds CBC 06/18/17 Range/Units 05:14 WBC 27.7 H (4.5-11.0) K/mm3 RBC 3.50 L (3.65-5.03) M/mm3 Hgb 9.6 L (10.1-14.3) gm/dl Hct 29.5 L (30.3-42.9) % Plt Count 270 (140-440) K/mm3 Comprehensive Metabolic Panel 06/18/17 Range/Units 05:14 Sodium 140 (137-145) mmol/L Potassium 4.6 (3.6-5.0) mmol/L Chloride 103.4 (98-107) mmol/L Carbon Dioxide 21 L (22-30) mmol/L BUN 76 H (7-17) mg/dL Creatinine 2.5 H (0.7-1.2) mg/dL Glucose 210 H (65-100) mg/dL Calcium 7.9 L (8.4-10.2) mg/dL - Imaging and Cardiology EKG: report reviewed, image reviewed Echo: pending - Telemetry EKG Rhythm: Sinus Rhythm - EKG Sinus rhythms and dysrhythmias: sinus rhythm
[2017-06-18 13:00] LABS: Bacteria,Urine 1+ /HPF (Negative); Bilirubin,Urine NEG (Negative); Blood,Urine NEG (Negative); Color,Urine Yellow (Yellow); Mucus,Urine FEW /HPF; Nitrite,Urine NEG (Negative); Urobilinogen,Urine < 2.0 mg/dL (<2.0)
[2017-06-18 13:23] LABS: Creatinine,Urine 206.4 mg/dL (0.1-20.0); Protein/Creatinine Ratio,Urine 0.58
--- NOTE | 2017-06-18 15:47 | Consultation ---
History of Present Illness Consult date: 06/18/17 Requesting physician: LOBITO MULLER Reason for consult: asthma History of present illness: 67 yo with long-standing hx of asthma. Has had 1-2 weeks of increased SOB, wheezing, cough with brown sputum. Failed outpatient therapy. Denies fevers, chills, chest pain, hemoptysis. Only on Albuterol MDI prn and nebs prn. Active Medications Acetaminophen (Tylenol) 650 mg PO Q4H PRN PRN Reason: Pain MILD(1-3)/Fever >100.5/LÓPEZ Acetaminophen/Hydrocodone Bitart ([place] 7.5/325) 1 each PO BID [facility] Last Admin: 06/18/17 10:20 Dose: 1 each Albuterol/Ipratropium (Duoneb *Not For Prn Use*) 1 ampul IH Q6HRT [facility] Last Admin: 06/18/17 13:28 Dose: 1 ampul Atorvastatin Calcium (Lipitor) 40 mg PO QHS [facility] [place] Last Admin: 06/17/17 22:36 Dose: 40 mg Azithromycin (Zithromax) 500 mg PO QDAY [facility] [place] Last Admin: 06/18/17 10:18 Dose: 500 mg Bisacodyl (Dulcolax) [address] QDAY PRN PRN Reason: Constipation unrelieved by MOM Carvedilol (Coreg) 25 mg PO BID [facility] [place] Last Admin: 06/18/17 10:14 Dose: 25 mg Dextrose (D50w (25gm) Syringe) 50 ml IV PRN PRN PRN Reason: Hypoglycemia Diltiazem HCl (Cardizem) 60 mg PO BID [facility] Last Admin: 06/18/17 10:14 Dose: 60 mg Folic Acid (Folvite) 1 mg PO SuMoWeFr [facility] Last Admin: 06/18/17 10:14 Dose: 1 mg Hydralazine HCl (Apresoline) 100 mg PO Q8H [facility] Last Admin: 06/18/17 12:22 Dose: 100 mg Hydralazine HCl (Apresoline) 10 mg IV Q4HR PRN PRN Reason: Hypertension Sodium Chloride (Nacl 0.9% 1000 Ml) 1,000 mls @ 75 mls/hr IV DIRECT [facility] Stop: 06/18/17 21:19 Last Admin: 06/18/17 10:13 Dose: 75 mls/hr Insulin Aspart (Novolog) 0 units SUB-Q ACHS [facility] PRN Reason: Protocol Last Admin: 06/18/17 12:22 Dose: 6 units Insulin Detemir (Levemir) 20 units SUB-Q QHS [facility] [place] Last Admin: 06/17/17 22:37 Dose: 20 units Isosorbide Mononitrate (Imdur) 30 mg PO DAILY [facility] [place] Last Admin: 06/18/17 10:18 Dose: 30 mg Methylprednisolone Sodium Succinate (Solu-Medrol) 40 mg IV Q6HR [facility] [place] Last Admin: 06/18/17 12:21 Dose: 40 mg Ondansetron HCl (Zofran) 4 mg IV Q8H PRN PRN Reason: N/V unrelieved by [place] Prazosin HCl (Minipress) 5 mg PO Q12HR [facility] [place] Last Admin: 06/18/17 10:17 Dose: 5 mg Past History Past Medical History: diabetes, hypertension, other (asthma; CKD) Social history: smoking (former). denies: alcohol abuse, prescription drug abuse Family history: other (No pulm issues reported in family) Medications and Allergies Allergies Allergy/AdvReac Type Severity Reaction Status Date / Time No Known Allergies Allergy Verified 06/16/17 23:45 Home Medications Medication Instructions Recorded Confirmed Last Taken Type Diltiazem [CarDIZEM] 60 mg PO BID 06/16/17 06/16/17 Unknown History Epoetin [place] [Procrit] 40,000 unit IJ Q4W 06/16/17 06/16/17 Unknown History Folic Acid [Folvite] 1 mg PO 4XW 06/16/17 06/16/17 Unknown History HYDROcodone/APAP 7.5-325 [[place] 1 tab PO BID 06/16/17 06/16/17 Unknown History 7.5-325 mg TAB] ISOSORBIDE MONOnitrate [Imdur ER] 30 mg PO DAILY 06/16/17 06/16/17 Unknown History Spironolactone [Aldactone] 25 mg PO DAILY 06/16/17 06/16/17 Unknown History Terazosin HCl 10 mg PO HS 06/16/17 06/16/17 Unknown History hydrALAZINE [Apresoline TAB] 100 mg PO Q8H 06/16/17 06/16/17 Unknown History Active Meds: Active Medications Acetaminophen (Tylenol) 650 mg PO Q4H PRN PRN Reason: Pain MILD(1-3)/Fever >100.5/[place] Acetaminophen/Hydrocodone Bitart ([place] 7.5/325) 1 each PO BID [facility] [place] Last Admin: 06/18/17 10:20 Dose: 1 each Albuterol/Ipratropium (Duoneb *Not For Prn Use*) 1 ampul IH Q6HRT [facility] [place] Last Admin: 06/18/17 13:28 Dose: 1 ampul Atorvastatin Calcium (Lipitor) 40 mg PO QHS [facility] [place] Last Admin: 06/17/17 22:36 Dose: 40 mg Azithromycin (Zithromax) 500 mg PO QDAY [facility] [place] Last Admin: 06/18/17 10:18 Dose: 500 mg Bisacodyl (Dulcolax) [address] QDAY PRN PRN Reason: Constipation unrelieved by MOM Carvedilol (Coreg) 25 mg PO BID [facility] Last Admin: 06/18/17 10:14 Dose: 25 mg Dextrose (D50w (25gm) Syringe) 50 ml IV PRN PRN PRN Reason: Hypoglycemia Diltiazem HCl (Cardizem) 60 mg PO BID [facility] [place] Last Admin: 06/18/17 10:14 Dose: 60 mg Folic Acid (Folvite) 1 mg PO SuMoWeFr [facility] [place] Last Admin: 06/18/17 10:14 Dose: 1 mg Hydralazine HCl (Apresoline) 100 mg PO Q8H [facility] Last Admin: 06/18/17 12:22 Dose: 100 mg Hydralazine HCl (Apresoline) 10 mg IV Q4HR PRN PRN Reason: Hypertension Sodium Chloride (Nacl 0.9% 1000 Ml) 1,000 mls @ 75 mls/hr IV DIRECT [facility] Stop: 06/18/17 21:19 Last Admin: 06/18/17 10:13 Dose: 75 mls/hr Insulin Aspart (Novolog) 0 units SUB-Q ACHS [facility] [place] PRN Reason: Protocol Last Admin: 06/18/17 12:22 Dose: 6 units Insulin Detemir (Levemir) 20 units SUB-Q QHS [facility] [place] Last Admin: 06/17/17 22:37 Dose: 20 units Isosorbide Mononitrate (Imdur) 30 mg PO DAILY [facility] Last Admin: 06/18/17 10:18 Dose: 30 mg Methylprednisolone Sodium Succinate (Solu-Medrol) 40 mg IV Q6HR [facility] Last Admin: 06/18/17 12:21 Dose: 40 mg Ondansetron HCl (Zofran) 4 mg IV Q8H PRN PRN Reason: N/V unrelieved by Reg[place] Prazosin HCl (Minipress) 5 mg PO Q12HR [facility] [place] Last Admin: 06/18/17 10:17 Dose: 5 mg Review of Systems All systems: negative Physical Examination Vital signs: Vital Signs Resp Pulse Ox 22 100 06/16/17 20:00 06/16/17 20:00 General appearance: no acute distress, alert Eyes: non-icteric ENT: oropharynx moist Neck: supple Effort: normal Ascultation: Bilateral: wheezes (faint expiratory) Cardiovascular: regular rate and rhythm (no mrg) Gastrointestinal: normoactive bowel sounds, soft, non-tender, non-distended Integumentary: normal Extremities: no cyanosis, no edema, pink and warm normal mental status, non-focal exam, pupils equal and round, CN II-XII normal mood appropriate, affect normal Results - Laboratory Findings CBC and BMP: 06/18/17 05:14 06/18/17 05:14 Abnormal lab findings: Abnormal Labs 06/16/17 06/16/17 06/17/17 22:05 22:05 05:02 WBC 16.7 H 19.0 H RBC Hgb Hct MCH 27 L 27 L Seg Neuts % (Manual) 93.0 H 84.0 H Lymphocytes % (Manual) 4.0 L 12.0 L Seg Neutrophils # Man 15.5 H 16.0 H Lymphocytes # (Manual) 0.7 L Carbon Dioxide BUN 64 H Creatinine 1.8 H Glucose 266 H POC Glucose Calcium 7.9 L Urine Creatinine Urine Total Protein 06/17/17 06/17/17 06/17/17 05:02 06:53 11:03 WBC RBC Hgb Hct MCH Seg Neuts % (Manual) Lymphocytes % (Manual) Seg Neutrophils # Man Lymphocytes # (Manual) Carbon Dioxide 19 L BUN 66 H Creatinine 1.9 H Glucose 356 H POC Glucose 357 H 318 H Calcium 8.1 L Urine Creatinine Urine Total Protein 06/17/17 06/17/17 06/18/17 16:26 21:39 05:14 WBC 27.7 H RBC 3.50 L Hgb 9.6 L Hct 29.5 L MCH Seg Neuts % (Manual) Lymphocytes % (Manual) Seg Neutrophils # Man Lymphocytes # (Manual) Carbon Dioxide BUN Creatinine Glucose POC Glucose 287 H 286 H Calcium Urine Creatinine Urine Total Protein 06/18/17 06/18/17 06/18/17 05:14 07:54 11:37 WBC RBC Hgb Hct MCH Seg Neuts % (Manual) Lymphocytes % (Manual) Seg Neutrophils # Man Lymphocytes # (Manual) Carbon Dioxide 21 L BUN 76 H Creatinine 2.5 H Glucose 210 H POC Glucose 204 H 275 H Calcium 7.9 L Urine Creatinine Urine Total Protein 06/18/17 Unknown WBC RBC Hgb Hct MCH Seg Neuts % (Manual) Lymphocytes % (Manual) Seg Neutrophils # Man Lymphocytes # (Manual) Carbon Dioxide BUN Creatinine Glucose POC Glucose Calcium Urine Creatinine 206.4 H Urine Total Protein 120 H - Diagnostic Findings Chest x-ray: report reviewed, image reviewed (clear lungs) Assessment and Plan Imp: 1. Acute bronchitis 2. Asthma exac. 3. Acute respiratory failure, hypoxia 4. MARCELO on CKD Rec: 1. Complete 5 days of Azithromycin 2. Prednisone taper at d/c 3. Add LABA/ICS such as Symbicort 160/4.5 2 puffs BID at d/c, and she needs to be seen by [place] [facility] 4. Home O2 eval. prior to d/c 5. No need for diuresis pulm-[place] Plan of care reviewed with patient, she understands/agrees Thanks kindly for the consult. Will follow.
[2017-06-18] MEDS: LEVEMIR SUB-Q SCH (23:57)
[2017-06-19] MEDS: NOVOLOG SUB-Q SCH ×5 (00:07→23:46)
[2017-06-19] MEDS: DUONEB *Not for PRN Use IH SCH ×4 (03:23→21:00)
[2017-06-19] MEDS: APRESOLINE PO SCH ×3 (05:09→22:42)
[2017-06-19 05:46] LABS: Hematocrit 30.1 % (30.3-42.9); Hemoglobin 9.8 gm/dl (10.1-14.3); Mean Corpuscular HGB Conc 33 % (30-34); Mean Corpuscular Hemoglobin 27 pg (28-32); Mean Corpuscular Volume 84 fl (79-97); Platelet Count 242 K/mm3 (140-440); Red Blood Count 3.59 M/mm3 (3.65-5.03); Red Cell Distribution Width 14.2 % (13.2-15.2)
[2017-06-19 05:58] LABS: Calcium 7.6 mg/dL (8.4-10.2)
--- NOTE | 2017-06-19 09:17 | Progress Note ---
Assessment and Plan Assessment: Asthma exacerbation with bronchitis Chest pain, atypical - transient and currently resolved; ECG pending Hypertensive urgency - improving DM MARCELO on CKD H/o heart failure in 07/2016 - no current clinical evidence of acutely decompensated HF Plan: Currently stable cardiac status. Nothing further to add from cardiac perspective at this time. Will follow on as needed basis. Assessment and plan reviewed with pt at bedside. The patient has been seen in conjunction with Dr. JD Benoit who agrees with the assessment and plan of care. Subjective Date of service: 06/19/17 Principal diagnosis: asthma exac Interval history: pt resting comfortably in bed, no current complaints. Objective Last Vital Signs Temp 97.8 F 06/19/17 07:38 Pulse 54 L 06/19/17 07:38 Resp 20 06/19/17 07:38 BP 144/54 06/19/17 07:38 Pulse Ox 96 06/19/17 07:38 - Physical Examination General: No Apparent Distress HEENT: Positive: PERRL, Normocephaly, Mucus Membranes Moist Neck: Positive: neck supple, trachea midline Cardiac: Positive: Reg Rate and Rhythm, S1/S2 Lungs: Positive: Decreased Breath Sounds Neuro: Positive: Grossly Intact, Cranial Nerve 2-12 Intact Abdomen: Positive: Soft. Negative: Tender Skin: Positive: Clear. Negative: Rash, Wound Musculoskeletal: No Fluid Collection, No Pain, Normal Range of Motion Extremities: Absent: edema - Labs and Meds CBC 06/19/17 Range/Units 05:16 WBC 27.1 H (4.5-11.0) K/mm3 RBC 3.59 L (3.65-5.03) M/mm3 Hgb 9.8 L (10.1-14.3) gm/dl Hct 30.1 L (30.3-42.9) % Plt Count 242 (140-440) K/mm3 Comprehensive Metabolic Panel 06/18/17 06/19/17 Range/Units 16:02 05:16 Sodium 139 136 L (137-145) mmol/L Potassium 4.5 4.6 (3.6-5.0) mmol/L Chloride 101.7 99.2 (98-107) mmol/L Carbon Dioxide 21 L 21 L (22-30) mmol/L BUN 83 H 82 H (7-17) mg/dL Creatinine 3.0 H 2.9 H (0.7-1.2) mg/dL Glucose 280 H 227 H (65-100) mg/dL Calcium 8.0 L 7.6 L (8.4-10.2) mg/dL - Imaging and Cardiology EKG: report reviewed, image reviewed Echo: report reviewed (Normal LVEF of 55 to 60%,grade 1 diastolic dysfunction, mild MR, mild TR, trivial pericardial effusion. Findings were discussed with the patient) - Telemetry EKG Rhythm: Sinus Rhythm - EKG Sinus rhythms and dysrhythmias: sinus rhythm
--- NOTE | 2017-06-19 09:40 | Progress Note ---
Assessment and Plan Impression: * COPD exacerbation with bronchitis * Acute renal insufficiency on chronic * Hypertension * Diabetes type 2 Plan: * cr was at baseline, rise likely due to over diureisis * give gentle ivfs * echo noted--preserved lv function * strict i/os * daily lytes * normal protein/cr ratio * follow up renal us with pvr * needs better BP and DM control--bp better today * daily lytes * avoid nephrotoxins * supportive care Subjective Date of service: 06/19/17 Principal diagnosis: asthma exac Interval history: resting well in bed today Objective - Exam Narrative Exam: Gen. appearance: Patient lying in bed in no acute distress HEENT: Normocephalic/atraumatic, pupils equal round reactive to light, extra occular movement intact, no scleral icterus, no JVD or thyromegaly or nodule, neck is supple, mucous membrane moist, no erythema or exudate Heart: S1-S2, regular rate and rhythm Lungs: wheezingbilateral breathing comfortable Abdomen: Positive bowel sounds, nontender, nondistended, no organomegaly Extremities: No edema, cyanosis, clubbing Neuro:: Oriented 3 , cranial nerves II-12 intact, speech, motor intact Skin: No rash, nodules, warm dry - Vital Signs Vital signs: Vital Signs - 12hr 06/18/17 06/18/17 06/18/17 22:00 22:14 22:31 Temperature Pulse Rate Pulse Rate [ 83 88 Anterior Bilateral Throughout] Respiratory 18 Rate Respiratory 16 18 Rate [Anterior Bilateral Throughout] Blood Pressure O2 Sat by Pulse 100 Oximetry 06/18/17 06/19/17 06/19/17 23:54 05:04 07:38 Temperature 97.8 F Pulse Rate 60 54 L Pulse Rate [ Anterior Bilateral Throughout] Respiratory 19 20 Rate Respiratory Rate [Anterior Bilateral Throughout] Blood Pressure 149/53 139/52 144/54 O2 Sat by Pulse 97 96 Oximetry - Lab 06/19/17 05:16 06/19/17 05:16 Most recent lab results Calcium 7.6 mg/dL (8.4-10.2) L 06/19/17 05:16 Urine Creatinine 206.4 mg/dL (0.1-20.0) H 06/18/17 Unknown Urine Total Protein 120 mg/dL (5-11.8) H 06/18/17 Unknown
[2017-06-19] MEDS: NORCO 7.5/325 PO SCH ×2 (09:55→22:43)
[2017-06-19] MEDS: CARDIZEM PO SCH ×2 (09:56→22:42)
[2017-06-19] MEDS: IMDUR PO SCH (09:56)
[2017-06-19] MEDS: COREG PO SCH ×2 (09:57→22:42)
[2017-06-19] MEDS: ZITHROMAX PO SCH (09:57)
[2017-06-19] MEDS: MINIPRESS PO SCH ×2 (09:58→22:41)
[2017-06-19] MEDS ORDERED: NACL 0.45% 1000 ML 1,000 ML IV SCH (10:00)
--- NOTE | 2017-06-19 13:01 | Ultrasound Report ---
ULTRASOUND RENAL BILATERAL HISTORY: Renal failure. TECHNIQUE: transabdominal ultrasound with color Doppler interrogation. FINDINGS: The right kidney measures 11.6 x 4.8 x 5.2cm. Right renal cortex: 1.3cm. The left kidney measures 12.8 x 5.5 x 5.7cm. Left renal cortex: 1.8cm. The kidneys are normal size, contour and position. There is increased renal parenchymal echotexture bilaterally. Corticomedullary differentiation is preserved. No evidence for mass, hydronephrosis or perinephric fluid. 3.0 x 2.7 cm simple cyst at the inferior pole of the left kidney is noted. The bladder is only partially distended. Prevoid bladder volume measures 35 cc. Postvoid residual measures 1.5 cc. IMPRESSION: Echogenic kidneys consistent with nonspecific renal parenchymal disease. Left renal cyst. No significant post void residual.
--- NOTE | 2017-06-19 13:37 | Progress Note ---
Assessment and Plan Imp: 1. Acute bronchitis 2. Asthma exac. 3. Acute respiratory failure, hypoxia 4. MARCELO on CKD Rec: 1. Complete 5 days of Azithromycin 2. Prednisone taper at d/c -> e.g. 40mg x 3 days, 30mg x 3 days, 20mg x 3 days, 10mg x 3 days 3. Add LABA/ICS such as Symbicort 160/4.5 2 puffs BID with a spacer (needs Rx for this) at d/c, and she needs to be seen by [place] [facility] 4. Neb machine 5. No need for diuresis pulm-[place] 6. Can be discharged from our standpoint but will cont. to monitor Plan of care reviewed with patient, she understands/agrees Subjective Date of service: 06/19/17 Principal diagnosis: asthma exac Interval history: No events. Awake, alert. SOB better. Wheezing better. On RA. No new complaints. Active Medications Acetaminophen (Tylenol) 650 mg PO Q4H PRN PRN Reason: Pain MILD(1-3)/Fever >100.5/LÓPEZ Acetaminophen/Hydrocodone Bitart ([place] 7.5/325) 1 each PO BID [facility] Last Admin: 06/19/17 09:55 Dose: 1 each Albuterol/Ipratropium (Duoneb *Not For Prn Use*) 1 ampul IH Q6HRT [facility] Last Admin: 06/19/17 10:34 Dose: 1 ampul Atorvastatin Calcium (Lipitor) 40 mg PO QHS [facility] Last Admin: 06/19/17 00:07 Dose: 40 mg Azithromycin (Zithromax) 500 mg PO QDAY [facility] Last Admin: 06/19/17 09:57 Dose: 500 mg Bisacodyl (Dulcolax) 10 mg [place] QDAY PRN PRN Reason: Constipation unrelieved by MOM Carvedilol (Coreg) 25 mg PO BID [facility] Last Admin: 06/19/17 09:57 Dose: 25 mg Dextrose (D50w (25gm) Syringe) 50 ml IV PRN PRN PRN Reason: Hypoglycemia Diltiazem HCl (Cardizem) 60 mg PO BID [facility] Last Admin: 06/19/17 09:56 Dose: 60 mg Folic Acid (Folvite) 1 mg PO SuMoWeFr [facility] Last Admin: 06/18/17 10:14 Dose: 1 mg Hydralazine HCl (Apresoline) 10 mg IV Q4HR PRN PRN Reason: Hypertension Hydralazine HCl (Apresoline) 100 mg PO 0600,1400,2200 [facility] Sodium Chloride (Nacl 0.9% 1000 Ml) 1,000 mls @ 125 mls/hr IV DIRECT [facility] Last Admin: 06/19/17 12:40 Dose: 125 mls/hr Sodium Chloride (Nacl 0.45% 1000 Ml) 1,000 mls @ 100 mls/hr IV DIRECT [facility] Insulin Aspart (Novolog) 0 units SUB-Q ACHS [facility] PRN Reason: Protocol Last Admin: 06/19/17 12:57 Dose: 3 units Insulin Detemir (Levemir) 20 units SUB-Q QHS [facility] Last Admin: 06/18/17 23:57 Dose: 20 units Isosorbide Mononitrate (Imdur) 30 mg PO DAILY [facility] Last Admin: 06/19/17 09:56 Dose: 30 mg Methylprednisolone Sodium Succinate (Solu-Medrol) 40 mg IV Q6HR [facility] Last Admin: 06/19/17 12:40 Dose: 40 mg Ondansetron HCl (Zofran) 4 mg IV Q8H PRN PRN Reason: N/V unrelieved by [place] Prazosin HCl (Minipress) 5 mg PO Q12HR [facility] Last Admin: 06/19/17 09:58 Dose: 5 mg Objective Vital Signs - 12hr 06/19/17 06/19/17 06/19/17 05:04 07:38 09:55 Temperature 97.8 F Pulse Rate 60 54 L Pulse Rate [ Anterior Bilateral Throughout] Respiratory 19 20 18 Rate Respiratory Rate [Anterior Bilateral Throughout] Blood Pressure 139/52 144/54 O2 Sat by Pulse 97 96 Oximetry 06/19/17 06/19/17 06/19/17 09:56 09:57 09:58 Temperature Pulse Rate 66 66 66 Pulse Rate [ Anterior Bilateral Throughout] Respiratory Rate Respiratory Rate [Anterior Bilateral Throughout] Blood Pressure 144/54 144/54 144/54 O2 Sat by Pulse Oximetry 06/19/17 06/19/17 10:00 10:34 Temperature Pulse Rate Pulse Rate [ 92 H Anterior Bilateral Throughout] Respiratory Rate Respiratory 16 Rate [Anterior Bilateral Throughout] Blood Pressure O2 Sat by Pulse 99 Oximetry Constitutional: no acute distress, alert Eyes: non-icteric ENT: oropharynx moist Neck: supple Effort: normal Ascultation: Bilateral: clear Cardiovascular: regular rate and rhythm (no mrg) Gastrointestinal: normoactive bowel sounds, soft, non-tender, non-distended Integumentary: normal Extremities: no cyanosis, no edema, pink and warm Neurologic: normal mental status, non-focal exam, pupils equal and round, CN II- XII normal Psychiatric: mood appropriate, affect normal CBC and BMP: 06/19/17 05:16 06/19/17 05:16 Abnormal lab findings: Abnormal Labs 06/16/17 06/16/17 06/17/17 22:05 22:05 05:02 WBC 16.7 H 19.0 H RBC Hgb Hct MCH 27 L 27 L Seg Neuts % (Manual) 93.0 H 84.0 H Lymphocytes % (Manual) 4.0 L 12.0 L Seg Neutrophils # Man 15.5 H 16.0 H Lymphocytes # (Manual) 0.7 L Sodium Carbon Dioxide BUN 64 H Creatinine 1.8 H Glucose 266 H POC Glucose Calcium 7.9 L Urine Creatinine Urine Total Protein 06/17/17 06/17/17 06/17/17 05:02 06:53 11:03 WBC RBC Hgb Hct MCH Seg Neuts % (Manual) Lymphocytes % (Manual) Seg Neutrophils # Man Lymphocytes # (Manual) Sodium Carbon Dioxide 19 L BUN 66 H Creatinine 1.9 H Glucose 356 H POC Glucose 357 H 318 H Calcium 8.1 L Urine Creatinine Urine Total Protein 06/17/17 06/17/17 06/18/17 16:26 21:39 05:14 WBC 27.7 H RBC 3.50 L Hgb 9.6 L Hct 29.5 L MCH Seg Neuts % (Manual) Lymphocytes % (Manual) Seg Neutrophils # Man Lymphocytes # (Manual) Sodium Carbon Dioxide BUN Creatinine Glucose POC Glucose 287 H 286 H Calcium Urine Creatinine Urine Total Protein 06/18/17 06/18/17 06/18/17 05:14 07:54 11:37 WBC RBC Hgb Hct MCH Seg Neuts % (Manual) Lymphocytes % (Manual) Seg Neutrophils # Man Lymphocytes # (Manual) Sodium Carbon Dioxide 21 L BUN 76 H Creatinine 2.5 H Glucose 210 H POC Glucose 204 H 275 H Calcium 7.9 L Urine Creatinine Urine Total Protein 01/06/18/17 06/18/17 16:02 16:46 22:51 WBC RBC Hgb Hct MCH Seg Neuts % (Manual) Lymphocytes % (Manual) Seg Neutrophils # Man Lymphocytes # (Manual) Sodium Carbon Dioxide 21 L BUN 83 H Creatinine 3.0 H Glucose 280 H POC Glucose 267 H 235 H Calcium 8.0 L Urine Creatinine Urine Total Protein 06/18/17 06/19/17 06/19/17 Unknown 05:16 05:16 WBC 27.1 H RBC 3.59 L Hgb 9.8 L Hct 30.1 L MCH 27 L Seg Neuts % (Manual) Lymphocytes % (Manual) Seg Neutrophils # Man Lymphocytes # (Manual) Sodium 136 L Carbon Dioxide 21 L BUN 82 H Creatinine 2.9 H Glucose 227 H POC Glucose Calcium 7.6 L Urine Creatinine 206.4 H Urine Total Protein 120 H 06/19/17 06/19/17 07:44 12:41 WBC RBC Hgb Hct MCH Seg Neuts % (Manual) Lymphocytes % (Manual) Seg Neutrophils # Man Lymphocytes # (Manual) Sodium Carbon Dioxide BUN Creatinine Glucose POC Glucose 202 H 193 H Calcium Urine Creatinine Urine Total Protein Chest x-ray: report reviewed, image reviewed
--- NOTE | 2017-06-19 17:03 | Progress Note ---
Assessment and Plan Assessment and plan: 67-year-old woman with history of hypertension, diabetes, asthma, chronic renal disease was sent from [place] for evaluation of asthma for Ayaka Arizmendi of treatment that was done on June 07 at a [facility] facility. She denied any fever, generalized body pain and malaise. Although she appears lethargic on admission. Acute on chronic respiratory failure * Continue nebulizer treatment. Peak flow meter. Pulmonary input noted. Will discharge and taper medications and also Symbicortas recommended. Asthma exacerbation with bronchitis * As noted above. Taper steroids. * Pulmonary input noted * Will need LABA/ICS and outpatient pulmonary evaluation Acute kidney injury on chronic kidney disease likely secondary to vasomotor nephropathy * Improving mildly. We'll hold torsemide and Aldactone. Will advise patient to also hold this until back to baseline. Restart only if her physician's instruction. * Continue gentle hydration was not only discussed with nursing staff. * Ensure to review med recs prior to discharge, as home medications appear not to be most current * Privacy Manager following Hypertensive urgency * Resume home medications. Hydralazine when necessary. Diabetes mellitus with hyperglycemia * Likely elevated on elevated due to steroids. We'll hold oral and hypoglycemic agents and start patient on long-acting insulin. In addition to sliding scale Stable congestive heart failure patient unsure if systolic or diastolic * We'll obtain echocardiogram for further evaluation. * Brush Cutter input noted. Leukocytosis * Secondary to demineralization from steroids. Chronic opiate dependence syndrome * Resume home. Medications DVT and GI prophylaxis Plan of care discussed in detail with the patient's she verbalized understanding. Anticipated discharge History Interval history: Patient seen and examined this morning. Sitting at bedside eating breakfast in no acute distress. She reports she takes torsemide 50 mg daily at home. Hospitalist Physical - Physical exam Narrative exam: VITAL SIGNS: Reviewed. GENERAL: The patient appeared well nourished and normally developed. Clinically improved today. Vital signs as documented. HEAD: No signs of head trauma. EYES: Pupils are equal. Extraocular motions intact. EARS: Hearing grossly intact. MOUTH: Oropharynx is normal. NECK: No adenopathy, no JVD. CHEST: Chest with diminished breath sounds sounds bilaterally. No, rales, or rhonchi. CARDIAC: Regular rate and rhythm. S1 and S2, without murmurs, gallops, or rubs. VASCULAR: No Edema. Peripheral pulses normal and equal in all extremities. ABDOMEN: Soft, without detectable tenderness. No sign of distention. No rebound or guarding, and no masses palpated. Bowel Sounds normal. MUSCULOSKELETAL: Good range of motion of all major joints. Extremities without clubbing, cyanosis or edema. NEUROLOGIC EXAM: Alert and oriented x 3. No focal sensory or strength deficits. Speech normal. Follows commands. PSYCHIATRIC: Mood normal. SKIN: No rash or lesions. - Constitutional Vitals: Temp Pulse Resp BP Pulse Ox 97.8 F 101 H 18 144/54 99 06/19/17 07:38 06/19/17 14:53 06/19/17 14:53 06/19/17 09:58 06/19/17 10:00 General appearance: Present: no acute distress Results - Labs CBC & Chem 7: 06/19/17 05:16 06/19/17 05:16 Labs: Laboratory Last Values WBC 27.1 K/mm3 (4.5-11.0) H 06/19/17 05:16 RBC 3.59 M/mm3 (3.65-5.03) L 06/19/17 05:16 Hgb 9.8 gm/dl (10.1-14.3) L 06/19/17 05:16 Hct 30.1 % (30.3-42.9) L 06/19/17 05:16 MCV 84 fl (79-97) 06/19/17 05:16 MCH 27 pg (28-32) L 06/19/17 05:16 MCHC 33 % (30-34) 06/19/17 05:16 RDW 14.2 % (13.2-15.2) 06/19/17 05:16 Plt Count 242 K/mm3 (140-440) 06/19/17 05:16 Add Manual Diff Complete 06/17/17 05:02 Total Counted 100 06/17/17 05:02 Seg Neutrophils % Waiter 06/17/17 05:02 Seg Neuts % (Manual) 84.0 % (40.0-70.0) H 06/17/17 05:02 Band Neutrophils % 2.0 % 06/17/17 05:02 Lymphocytes % (Manual) 12.0 % (13.4-35.0) L 06/17/17 05:02 Reactive Lymphs % (Man) 0 % 06/17/17 05:02 Monocytes % (Manual) 2.0 % (0.0-7.3) 06/17/17 05:02 Eosinophils % (Manual) 0 % (0.0-4.3) 06/17/17 05:02 Basophils % (Manual) 0 % (0.0-1.8) 06/17/17 05:02 Metamyelocytes % 0 % 06/17/17 05:02 Myelocytes % 0 % 06/17/17 05:02 Promyelocytes % 0 % 06/17/17 05:02 Blast Cells % 0 % 06/17/17 05:02 Nucleated RBC % Not Reportable 06/17/17 05:02 Seg Neutrophils # Man 16.0 K/mm3 (1.8-7.7) H 06/17/17 05:02 Band Neutrophils # 0.4 K/mm3 06/17/17 05:02 Lymphocytes # (Manual) 2.3 K/mm3 (1.2-5.4) 06/17/17 05:02 Abs React Lymphs (Man) 0.0 K/mm3 06/17/17 05:02 Monocytes # (Manual) 0.4 K/mm3 (0.0-0.8) 06/17/17 05:02 Eosinophils # (Manual) 0.0 K/mm3 (0.0-0.4) 06/17/17 05:02 Basophils # (Manual) 0.0 K/mm3 (0.0-0.1) 06/17/17 05:02 Metamyelocytes # 0.0 K/mm3 06/17/17 05:02 Myelocytes # 0.0 K/mm3 06/17/17 05:02 Promyelocytes # 0.0 K/mm3 06/17/17 05:02 Blast Cells # 0.0 K/mm3 06/17/17 05:02 WBC Morphology Not Reportable 06/17/17 05:02 Hypersegmented Neuts Not Reportable 06/17/17 05:02 Hyposegmented Neuts Not Reportable 06/17/17 05:02 Hypogranular Neuts Not Reportable 06/17/17 05:02 Smudge Cells Not Reportable 06/17/17 05:02 Toxic Granulation Not Reportable 06/17/17 05:02 Toxic Vacuolation Not Reportable 06/17/17 05:02 Dohle Bodies Not Reportable 06/17/17 05:02 Pelger-Huet Anomaly Not Reportable 06/17/17 05:02 Jacinto Rods Not Reportable 06/17/17 05:02 Platelet Estimate Appears normal 06/17/17 05:02 Clumped Platelets Not Reportable 06/17/17 05:02 Plt Clumps, EDTA Not Reportable 06/17/17 05:02 Large Platelets Not Reportable 06/17/17 05:02 Giant Platelets Not Reportable 06/17/17 05:02 Platelet Satelliting Not Reportable 06/17/17 05:02 Plt Morphology Comment Not Reportable 06/17/17 05:02 RBC Morphology Not Reportable 06/17/17 05:02 Dimorphic RBCs Not Reportable 06/17/17 05:02 Polychromasia Not Reportable 06/17/17 05:02 Hypochromasia 1+ 06/17/17 05:02 Poikilocytosis Not Reportable 06/17/17 05:02 Anisocytosis 1+ 06/17/17 05:02 Microcytosis Not Reportable 06/17/17 05:02 Macrocytosis Not Reportable 06/17/17 05:02 Spherocytes Not Reportable 06/17/17 05:02 Pappenheimer Bodies Not Reportable 06/17/17 05:02 Sickle Cells Not Reportable 06/17/17 05:02 Target Cells Not Reportable 06/17/17 05:02 Tear Drop Cells Not Reportable 06/17/17 05:02 Ovalocytes Not Reportable 06/17/17 05:02 Helmet Cells Not Reportable 06/17/17 05:02 [place] Bodies Not Reportable 06/17/17 05:02 [place] Rings Not Reportable 06/17/17 05:02 [place] Cells Not Reportable 06/17/17 05:02 Bite Cells Not Reportable 06/17/17 05:02 Crenated Cell Not Reportable 06/17/17 05:02 Elliptocytes Not Reportable 06/17/17 05:02 Acanthocytes (Spur) Not Reportable 06/17/17 05:02 Rouleaux Not Reportable 06/17/17 05:02 Hemoglobin C Crystals Not Reportable 06/17/17 05:02 Schistocytes Not Reportable 06/17/17 05:02 Malaria parasites Not Reportable 06/17/17 05:02 Dc Bodies Not Reportable 06/17/17 05:02 Hem Pathologist Commnt No 06/17/17 05:02 Sodium 136 mmol/L (137-145) L 06/19/17 05:16 Potassium 4.6 mmol/L (3.6-5.0) 06/19/17 05:16 Chloride 99.2 mmol/L (98-107) 06/19/17 05:16 Carbon Dioxide 21 mmol/L (22-30) L 06/19/17 05:16 Anion Gap 20 mmol/L 06/19/17 05:16 BUN 82 mg/dL (7-17) H 06/19/17 05:16 Creatinine 2.9 mg/dL (0.7-1.2) H 06/19/17 05:16 Estimated GFR 20 ml/min 06/19/17 05:16 BUN/Creatinine Ratio 28 % 06/19/17 05:16 Glucose 227 mg/dL (65-100) H 06/19/17 05:16 POC Glucose 239 (70-105) H 06/19/17 16:50 Lactic Acid 0.70 mmol/L (0.7-2.0) 06/16/17 22:05 Calcium 7.6 mg/dL (8.4-10.2) L 06/19/17 05:16 Urine Color Yellow (Yellow) 06/18/17 Unknown Urine Turbidity Clear (Clear) 06/18/17 Unknown Urine pH 5.0 (5.0-7.0) 06/18/17 Unknown Ur Specific [place] 1.014 (1.003-1.030) 06/18/17 Unknown Urine Protein 100 mg/dl mg/dL (Negative) 06/18/17 Unknown Urine Glucose (UA) Neg mg/dL (Negative) 06/18/17 Unknown Urine Ketones Neg mg/dL (Negative) 06/18/17 Unknown Urine Blood Neg (Negative) 06/18/17 Unknown Urine Nitrite Neg (Negative) 06/18/17 Unknown Urine Bilirubin Neg (Negative) 06/18/17 Unknown Urine Urobilinogen < 2.0 mg/dL (<2.0) 06/18/17 Unknown Ur Leukocyte Esterase Neg (Negative) 06/18/17 Unknown Urine WBC (Auto) 4.0 /HPF (0.0-6.0) 06/18/17 Unknown Urine RBC (Auto) 6.0 /HPF (0.0-6.0) 06/18/17 Unknown U Epithel Cells (Auto) 5.0 /HPF (0-13.0) 06/18/17 Unknown Urine Bacteria (Auto) 1+ /HPF (Negative) 06/18/17 Unknown Urine Mucus Few /HPF 06/18/17 Unknown Urine Eosinophils None seen (None Seen) 06/18/17 Unknown Urine Creatinine 206.4 mg/dL (0.1-20.0) H 06/18/17 Unknown Protein/Creatinin Ratio 0.58 06/18/17 Unknown Urine Total Protein 120 mg/dL (5-11.8) H 06/18/17 Unknown - Imaging and Cardiology Imaging and Cardiology: Renal ultrasound, left renal cyst
[2017-06-19] MEDS: LEVEMIR SUB-Q SCH (22:45)
[2017-06-20] MEDS: DUONEB *Not for PRN Use IH SCH ×4 (03:07→20:26)
[2017-06-20] MEDS: APRESOLINE PO SCH ×3 (05:56→22:12)
[2017-06-20 06:19] LABS: Hemoglobin 10.3 gm/dl (10.1-14.3); Mean Corpuscular HGB Conc 33 % (30-34); Mean Corpuscular Hemoglobin 28 pg (28-32); Mean Corpuscular Volume 84 fl (79-97); Platelet Count 232 K/mm3 (140-440); Red Cell Distribution Width 14.4 % (13.2-15.2)
[2017-06-20 06:29] LABS: Calcium 7.3 mg/dL (8.4-10.2)
--- NOTE | 2017-06-20 08:14 | Progress Note ---
Assessment and Plan 67-year-old woman with history of hypertension, diabetes, asthma, chronic renal disease was sent from [place] for evaluation of asthma for Ayakaivonne Arizmendi of treatment that was done on June 07 at a [facility] facility. She denied any fever, generalized body pain and malaise. Although she appears lethargic on admission. Acute on chronic respiratory failure * Continue nebulizer treatment. Peak flow meter. Pulmonary input noted. Will discharge and taper medications and also Symbicortas recommended. Asthma exacerbation with bronchitis * As noted above. Taper steroids. * Pulmonary input noted * Will need LABA/ICS and outpatient pulmonary evaluation Acute kidney injury on chronic kidney disease likely secondary to vasomotor nephropathy * Improving mildly. We'll hold torsemide and Aldactone. Will advise patient to also hold this until back to baseline. Restart only if her physician's instruction. * Continue gentle hydration * Ensure to review med recs prior to discharge, as home medications appear not to be most current * Direct Support Staff Member following Hypertensive urgency * Resume home medications. Hydralazine when necessary. Diabetes mellitus with hyperglycemia * Likely elevated on elevated due to steroids. We'll hold oral and hypoglycemic agents and start patient on long-acting insulin. In addition to sliding scale Stable congestive heart failure patient unsure if systolic or diastolic * We'll obtain echocardiogram for further evaluation. * Machine Strap Buckler input noted. Leukocytosis * Secondary to demineralization from steroids. Chronic opiate dependence syndrome * Resume home. Medications DVT and GI prophylaxis Plan of care discussed in detail with the patient's she verbalized understanding. Optimize BUN and Creatinien levels and discharge thereafter Subjective Date of service: 06/20/17 Principal diagnosis: asthma exac Objective - Constitutional Vitals: Vital Signs - 12hr 06/19/17 06/19/17 06/19/17 21:00 21:03 21:15 Temperature Pulse Rate Pulse Rate [ 93 H 95 H Anterior Bilateral Throughout] Respiratory Rate Respiratory 16 16 Rate [Anterior Bilateral Throughout] Respiratory Rate [Back] Blood Pressure O2 Sat by Pulse 98 Oximetry 06/19/17 06/19/17 06/19/17 22:00 22:40 22:41 Temperature Pulse Rate 60 Pulse Rate [ Anterior Bilateral Throughout] Respiratory 20 Rate Respiratory Rate [Anterior Bilateral Throughout] Respiratory 20 Rate [Back] Blood Pressure 154/63 O2 Sat by Pulse 96 Oximetry 06/19/17 06/19/17 06/19/17 22:42 22:43 23:43 Temperature Pulse Rate 60 Pulse Rate [ Anterior Bilateral Throughout] Respiratory 20 20 Rate Respiratory Rate [Anterior Bilateral Throughout] Respiratory Rate [Back] Blood Pressure 154/63 O2 Sat by Pulse Oximetry 06/20/17 06/20/17 06/20/17 03:08 03:23 05:53 Temperature Pulse Rate 61 Pulse Rate [ 61 63 Anterior Bilateral Throughout] Respiratory Rate Respiratory 18 18 Rate [Anterior Bilateral Throughout] Respiratory Rate [Back] Blood Pressure 179/64 O2 Sat by Pulse 98 Oximetry 06/20/17 06:00 Temperature 97.9 F Pulse Rate Pulse Rate [ Anterior Bilateral Throughout] Respiratory 20 Rate Respiratory Rate [Anterior Bilateral Throughout] Respiratory Rate [Back] Blood Pressure O2 Sat by Pulse Oximetry General appearance: Present: no acute distress, well-nourished - EENT Eyes: PERRL, EOM intact - Neck Neck: supple, normal ROM - Respiratory Respiratory effort: normal Respiratory: bilateral: diminished - Cardiovascular Rhythm: regular Heart Sounds: Present: S1 & S2. Absent: gallop, rub Extremities: pulses intact, No edema, normal color, Full ROM - Gastrointestinal General gastrointestinal: Present: soft, non-tender, non-distended - Integumentary Integumentary: clear, warm, dry - Musculoskeletal Musculoskeletal: 1, strength equal bilaterally - Neurologic Neurologic: moves all extremities - Psychiatric Psychiatric: memory intact, appropriate mood/affect, intact judgment & insight - Labs CBC & Chem 7: 06/20/17 05:47 06/20/17 05:47 Labs: Abnormal lab results 06/19/17 06/19/17 06/19/17 Range/Units 07:44 12:41 16:50 WBC (4.5-11.0) K/mm3 Sodium (137-145) mmol/L Chloride (98-107) mmol/L Carbon Dioxide (22-30) mmol/L BUN (7-17) mg/dL Creatinine (0.7-1.2) mg/dL Glucose (65-100) mg/dL POC Glucose 202 H 193 H 239 H (70-105) Calcium (8.4-10.2) mg/dL 06/19/17 06/20/17 06/20/17 Range/Units 22:55 05:47 05:47 WBC 22.9 H (4.5-11.0) K/mm3 Sodium 130 L (137-145) mmol/L Chloride 94.6 L (98-107) mmol/L Carbon Dioxide 19 L (22-30) mmol/L BUN 89 H (7-17) mg/dL Creatinine 2.8 H (0.7-1.2) mg/dL Glucose 206 H (65-100) mg/dL POC Glucose 195 H (70-105) Calcium 7.3 L (8.4-10.2) mg/dL 06/20/17 Range/Units 07:53 WBC (4.5-11.0) K/mm3 Sodium (137-145) mmol/L Chloride (98-107) mmol/L Carbon Dioxide (22-30) mmol/L BUN (7-17) mg/dL Creatinine (0.7-1.2) mg/dL Glucose (65-100) mg/dL POC Glucose 208 H (70-105) Calcium (8.4-10.2) mg/dL
[2017-06-20] MEDS: NOVOLOG SUB-Q SCH ×4 (09:44→22:36)
[2017-06-20] MEDS: CARDIZEM PO SCH ×2 (10:14→22:14)
[2017-06-20] MEDS: IMDUR PO SCH (10:14)
[2017-06-20] MEDS: MINIPRESS PO SCH ×2 (10:14→22:14)
[2017-06-20] MEDS: ZITHROMAX PO SCH (10:15)
[2017-06-20] MEDS: COREG PO SCH ×2 (10:15→22:15)
[2017-06-20] MEDS: NORCO 7.5/325 PO SCH ×2 (10:15→22:13)
[2017-06-20] MEDS: FOLVITE PO SCH (11:07)
--- NOTE | 2017-06-20 12:15 | Progress Note ---
Assessment and Plan Imp: 1. Acute bronchitis 2. Asthma exac. 3. Acute respiratory failure, hypoxia 4. MARCELO on CKD Rec: 1. Complete 5 days of Azithromycin 2. Prednisone taper at d/c -> e.g. 40mg x 3 days, 30mg x 3 days, 20mg x 3 days, 10mg x 3 days 3. Add LABA/ICS such as Symbicort 160/4.5 2 puffs BID with a spacer (needs Rx for this) at d/c, and she needs to be seen by [facility] 4. Neb machine 5. No need for diuresis pulm-[place] 6. Can be discharged from our standpoint but will cont. to monitor Plan of care reviewed with patient, she understands/agrees Subjective Date of service: 06/20/17 Principal diagnosis: asthma exac Interval history: No events. Awake, alert. SOB better. Wheezing better. On RA. No new complaints. Active Medications Acetaminophen (Tylenol) 650 mg PO Q4H PRN PRN Reason: Pain MILD(1-3)/Fever >100.5/LÓPEZ Acetaminophen/Hydrocodone Bitart ([place] 7.5/325) 1 each PO BID [facility] Last Admin: 06/20/17 10:15 Dose: 1 each Albuterol/Ipratropium (Duoneb *Not For Prn Use*) 1 ampul IH Q6HRT [facility] Last Admin: 06/20/17 08:28 Dose: 1 ampul Atorvastatin Calcium (Lipitor) 40 mg PO QHS [facility] Last Admin: 06/19/17 22:41 Dose: 40 mg Azithromycin (Zithromax) 500 mg PO QDAY [facility] Last Admin: 06/20/17 10:15 Dose: 500 mg Bisacodyl (Dulcolax) 10 mg [place] QDAY PRN PRN Reason: Constipation unrelieved by MOM Carvedilol (Coreg) 25 mg PO BID [facility] Last Admin: 06/20/17 10:15 Dose: 25 mg Dextrose (D50w (25gm) Syringe) 50 ml IV PRN PRN PRN Reason: Hypoglycemia Diltiazem HCl (Cardizem) 60 mg PO BID [facility] Last Admin: 06/20/17 10:14 Dose: 60 mg Folic Acid (Folvite) 1 mg PO SuMoWeFr [facility] Last Admin: 06/20/17 11:07 Dose: 1 mg Hydralazine HCl (Apresoline) 10 mg IV Q4HR PRN PRN Reason: Hypertension Hydralazine HCl (Apresoline) 100 mg PO 0600,1400,2200 [facility] Last Admin: 06/20/17 05:56 Dose: 100 mg Sodium Chloride (Nacl 0.45% 1000 Ml) 1,000 mls @ 100 mls/hr IV DIRECT [facility] Last Admin: 06/19/17 22:43 Dose: 100 mls/hr Insulin Aspart (Novolog) 0 units SUB-Q ACHS [facility] PRN Reason: Protocol Last Admin: 06/20/17 12:02 Dose: Not Given Insulin Detemir (Levemir) 20 units SUB-Q QHS [facility] Last Admin: 06/19/17 22:45 Dose: 20 units Isosorbide Mononitrate (Imdur) 30 mg PO DAILY [facility] Last Admin: 06/20/17 10:14 Dose: 30 mg Ondansetron HCl (Zofran) 4 mg IV Q8H PRN PRN Reason: N/V unrelieved by [facility] Prazosin HCl (Minipress) 5 mg PO Q12HR [facility] Last Admin: 06/20/17 10:14 Dose: 5 mg Prednisone (Deltasone) 40 mg PO QDAY [facility] Objective Vital Signs - 12hr 06/20/17 06/20/17 06/20/17 03:08 03:23 05:53 Temperature Pulse Rate 61 Pulse Rate [ 61 63 Anterior Bilateral Throughout] Respiratory Rate Respiratory 18 18 Rate [Anterior Bilateral Throughout] Respiratory Rate [Back] Blood Pressure 179/64 O2 Sat by Pulse 98 Oximetry 06/20/17 06/20/17 06/20/17 06:00 07:49 08:28 Temperature 97.9 F 97.8 F Pulse Rate 59 L Pulse Rate [ 55 L Anterior Bilateral Throughout] Respiratory 20 20 Rate Respiratory 20 Rate [Anterior Bilateral Throughout] Respiratory Rate [Back] Blood Pressure 177/63 O2 Sat by Pulse 100 99 Oximetry 06/20/17 06/20/17 06/20/17 08:38 10:00 10:14 Temperature Pulse Rate 62 Pulse Rate [ 54 L Anterior Bilateral Throughout] Respiratory Rate Respiratory 18 Rate [Anterior Bilateral Throughout] Respiratory 18 Rate [Back] Blood Pressure 177/63 O2 Sat by Pulse Oximetry 06/20/17 10:15 Temperature Pulse Rate 62 Pulse Rate [ Anterior Bilateral Throughout] Respiratory 18 Rate Respiratory Rate [Anterior Bilateral Throughout] Respiratory Rate [Back] Blood Pressure 177/63 O2 Sat by Pulse Oximetry Constitutional: no acute distress, alert Eyes: non-icteric ENT: oropharynx moist Neck: supple Effort: normal Ascultation: Bilateral: clear Cardiovascular: regular rate and rhythm (no mrg) Gastrointestinal: normoactive bowel sounds, soft, non-tender, non-distended Integumentary: normal Extremities: no cyanosis, no edema, pink and warm Neurologic: normal mental status, non-focal exam, pupils equal and round, CN II- XII normal Psychiatric: mood appropriate, affect normal CBC and BMP: 06/20/17 05:47 06/20/17 05:47 Abnormal lab findings: Abnormal Labs 06/16/17 06/16/17 06/17/17 22:05 22:05 05:02 WBC 16.7 H 19.0 H RBC Hgb Hct MCH 27 L 27 L Seg Neuts % (Manual) 93.0 H 84.0 H Lymphocytes % (Manual) 4.0 L 12.0 L Seg Neutrophils # Man 15.5 H 16.0 H Lymphocytes # (Manual) 0.7 L Sodium Chloride Carbon Dioxide BUN 64 H Creatinine 1.8 H Glucose 266 H POC Glucose Calcium 7.9 L Urine Creatinine Urine Total Protein 06/17/17 06/17/17 06/17/17 05:02 06:53 11:03 WBC RBC Hgb Hct MCH Seg Neuts % (Manual) Lymphocytes % (Manual) Seg Neutrophils # Man Lymphocytes # (Manual) Sodium Chloride Carbon Dioxide 19 L BUN 66 H Creatinine 1.9 H Glucose 356 H POC Glucose 357 H 318 H Calcium 8.1 L Urine Creatinine Urine Total Protein 06/17/17 06/17/17 06/18/17 16:26 21:39 05:14 WBC 27.7 H RBC 3.50 L Hgb 9.6 L Hct 29.5 L MCH Seg Neuts % (Manual) Lymphocytes % (Manual) Seg Neutrophils # Man Lymphocytes # (Manual) Sodium Chloride Carbon Dioxide BUN Creatinine Glucose POC Glucose 287 H 286 H Calcium Urine Creatinine Urine Total Protein 06/18/17 06/18/17 06/18/17 05:14 07:54 11:37 WBC RBC Hgb Hct MCH Seg Neuts % (Manual) Lymphocytes % (Manual) Seg Neutrophils # Man Lymphocytes # (Manual) Sodium Chloride Carbon Dioxide 21 L BUN 76 H Creatinine 2.5 H Glucose 210 H POC Glucose 204 H 275 H Calcium 7.9 L Urine Creatinine Urine Total Protein 06/18/17 06/18/17 06/18/17 16:02 16:46 22:51 WBC RBC Hgb Hct MCH Seg Neuts % (Manual) Lymphocytes % (Manual) Seg Neutrophils # Man Lymphocytes # (Manual) Sodium Chloride Carbon Dioxide 21 L BUN 83 H Creatinine 3.0 H Glucose 280 H POC Glucose 267 H 235 H Calcium 8.0 L Urine Creatinine Urine Total Protein 06/18/17 06/19/17 06/19/17 Unknown 05:16 05:16 WBC 27.1 H RBC 3.59 L Hgb 9.8 L Hct 30.1 L MCH 27 L Seg Neuts % (Manual) Lymphocytes % (Manual) Seg Neutrophils # Man Lymphocytes # (Manual) Sodium 136 L Chloride Carbon Dioxide 21 L BUN 82 H Creatinine 2.9 H Glucose 227 H POC Glucose Calcium 7.6 L Urine Creatinine 206.4 H Urine Total Protein 120 H 06/19/17 06/19/17 06/19/17 07:44 12:41 16:50 WBC RBC Hgb Hct MCH Seg Neuts % (Manual) Lymphocytes % (Manual) Seg Neutrophils # Man Lymphocytes # (Manual) Sodium Chloride Carbon Dioxide BUN Creatinine Glucose POC Glucose 202 H 193 H 239 H Calcium Urine Creatinine Urine Total Protein 06/19/17 06/20/17 06/20/17 22:55 05:47 05:47 WBC 22.9 H RBC Hgb Hct MCH Seg Neuts % (Manual) Lymphocytes % (Manual) Seg Neutrophils # Man Lymphocytes # (Manual) Sodium 130 L Chloride 94.6 L Carbon Dioxide 19 L BUN 89 H Creatinine 2.8 H Glucose 206 H POC Glucose 195 H Calcium 7.3 L Urine Creatinine Urine Total Protein 06/20/17 06/20/17 07:53 12:01 WBC RBC Hgb Hct MCH Seg Neuts % (Manual) Lymphocytes % (Manual) Seg Neutrophils # Man Lymphocytes # (Manual) Sodium Chloride Carbon Dioxide BUN Creatinine Glucose POC Glucose 208 H 150 H Calcium Urine Creatinine Urine Total Protein Chest x-ray: report reviewed, image reviewed
--- NOTE | 2017-06-20 14:20 | Progress Note ---
Assessment and Plan Impression: * COPD exacerbation with bronchitis * Acute renal insufficiency on chronic * Hypertension * Diabetes type 2 * hyponatremia Plan: * cr was at baseline, rise likely due to over diureisis * give gentle ivfs--NS today * echo noted--preserved lv function * strict i/os * daily lytes * normal protein/cr ratio * normal renal us with pvr * needs better BP and DM control--bp better today * daily lytes * avoid nephrotoxins * supportive care Subjective Date of service: 06/20/17 Principal diagnosis: asthma exac Interval history: resting well in bed today Objective - Exam Narrative Exam: Gen. appearance: Patient lying in bed in no acute distress HEENT: Normocephalic/atraumatic, pupils equal round reactive to light, extra occular movement intact, no scleral icterus, no JVD or thyromegaly or nodule, neck is supple, mucous membrane moist, no erythema or exudate Heart: S1-S2, regular rate and rhythm Lungs: wheezingbilateral breathing comfortable Abdomen: Positive bowel sounds, nontender, nondistended, no organomegaly Extremities: No edema, cyanosis, clubbing Neuro:: Oriented 3 , cranial nerves II-12 intact, speech, motor intact Skin: No rash, nodules, warm dry - Vital Signs Vital signs: Vital Signs - 12hr 06/20/17 06/20/17 06/20/17 03:08 03:23 05:53 Temperature Pulse Rate 61 Pulse Rate [ 61 63 Anterior Bilateral Throughout] Respiratory Rate Respiratory 18 18 Rate [Anterior Bilateral Throughout] Respiratory Rate [Back] Blood Pressure 179/64 O2 Sat by Pulse 98 Oximetry 06/20/17 06/20/17 06/20/17 06:00 07:49 08:28 Temperature 97.9 F 97.8 F Pulse Rate 59 L Pulse Rate [ 55 L Anterior Bilateral Throughout] Respiratory 20 20 Rate Respiratory 20 Rate [Anterior Bilateral Throughout] Respiratory Rate [Back] Blood Pressure 177/63 O2 Sat by Pulse 100 99 Oximetry 06/20/17 06/20/17 06/20/17 08:38 10:00 10:14 Temperature Pulse Rate 62 Pulse Rate [ 54 L Anterior Bilateral Throughout] Respiratory Rate Respiratory 18 Rate [Anterior Bilateral Throughout] Respiratory 18 Rate [Back] Blood Pressure 177/63 O2 Sat by Pulse Oximetry 06/20/17 10:15 Temperature Pulse Rate 62 Pulse Rate [ Anterior Bilateral Throughout] Respiratory 18 Rate Respiratory Rate [Anterior Bilateral Throughout] Respiratory Rate [Back] Blood Pressure 177/63 O2 Sat by Pulse Oximetry - Lab 06/20/17 05:47 06/20/17 05:47 Most recent lab results Calcium 7.3 mg/dL (8.4-10.2) L 06/20/17 05:47 Urine Creatinine 206.4 mg/dL (0.1-20.0) H 06/18/17 Unknown Urine Total Protein 120 mg/dL (5-11.8) H 06/18/17 Unknown
[2017-06-20] MEDS: NACL 0.9% 1000 ML 1,000 ML IV SCH (16:28)
[2017-06-20] MEDS: LEVEMIR SUB-Q SCH (22:15)
[2017-06-21] MEDS: DUONEB *Not for PRN Use IH SCH ×3 (03:06→14:38)
[2017-06-21] MEDS: APRESOLINE PO SCH ×2 (05:39→14:54)
[2017-06-21] MEDS: NACL 0.9% 1000 ML 1,000 ML IV SCH (05:39)
[2017-06-21 05:45] LABS: Calcium 7.3 mg/dL (8.4-10.2)
--- NOTE | 2017-06-21 08:10 | Progress Note ---
Assessment and Plan Impression: * COPD exacerbation with bronchitis * Acute renal insufficiency on chronic * Hypertension * Diabetes type 2 * hyponatremia * azotemia--due to steriods Plan: * cr is better today, at baseline * stop ivfs today * echo noted--preserved lv function * strict i/os * daily lytes * normal protein/cr ratio * normal renal us with pvr * needs better BP and DM control--bp better today * daily lytes * avoid nephrotoxins * supportive care * elevated BUN due to steriods, reduce dose Subjective Date of service: 06/21/17 Principal diagnosis: asthma exac Interval history: resting well in bed today Objective - Exam Narrative Exam: Gen. appearance: Patient lying in bed in no acute distress HEENT: Normocephalic/atraumatic, pupils equal round reactive to light, extra occular movement intact, no scleral icterus, no JVD or thyromegaly or nodule, neck is supple, mucous membrane moist, no erythema or exudate Heart: S1-S2, regular rate and rhythm Lungs: wheezingbilateral breathing comfortable Abdomen: Positive bowel sounds, nontender, nondistended, no organomegaly Extremities: No edema, cyanosis, clubbing Neuro:: Oriented 3 , cranial nerves II-12 intact, speech, motor intact Skin: No rash, nodules, warm dry - Vital Signs Vital signs: Vital Signs - 12hr 06/20/17 06/20/17 06/20/17 20:26 20:28 20:41 Temperature Pulse Rate Pulse Rate [ 58 L 60 Anterior Bilateral Throughout] Pulse Rate [ Apical] Respiratory Rate Respiratory 16 16 Rate [Anterior Bilateral Throughout] Respiratory Rate [Back] Blood Pressure O2 Sat by Pulse 100 Oximetry 06/20/17 06/20/17 06/20/17 22:00 22:13 22:14 Temperature Pulse Rate 68 Pulse Rate [ Anterior Bilateral Throughout] Pulse Rate [ 68 Apical] Respiratory 18 18 Rate Respiratory Rate [Anterior Bilateral Throughout] Respiratory 18 Rate [Back] Blood Pressure 220/82 O2 Sat by Pulse 98 Oximetry 06/20/17 06/20/17 06/21/17 22:15 23:13 07:26 Temperature Pulse Rate 68 Pulse Rate [ 59 L Anterior Bilateral Throughout] Pulse Rate [ Apical] Respiratory 18 Rate Respiratory 20 Rate [Anterior Bilateral Throughout] Respiratory Rate [Back] Blood Pressure 220/82 O2 Sat by Pulse Oximetry 06/21/17 06/21/17 07:36 07:43 Temperature 98.6 F Pulse Rate Pulse Rate [ 61 Anterior Bilateral Throughout] Pulse Rate [ Apical] Respiratory 22 Rate Respiratory 20 Rate [Anterior Bilateral Throughout] Respiratory Rate [Back] Blood Pressure 166/61 O2 Sat by Pulse Oximetry - Lab 06/20/17 05:47 06/21/17 04:08 Most recent lab results Calcium 7.3 mg/dL (8.4-10.2) L 06/21/17 04:08 Urine Creatinine 206.4 mg/dL (0.1-20.0) H 06/18/17 Unknown Urine Total Protein 120 mg/dL (5-11.8) H 06/18/17 Unknown
[2017-06-21] MEDS: NOVOLOG SUB-Q SCH ×3 (08:50→16:40)
[2017-06-21] MEDS: ZITHROMAX PO SCH (09:09)
[2017-06-21] MEDS: IMDUR PO SCH (09:09)
[2017-06-21] MEDS: MINIPRESS PO SCH (09:10)
[2017-06-21] MEDS: COREG PO SCH (09:10)
[2017-06-21] MEDS: NORCO 7.5/325 PO SCH (09:11)
[2017-06-21] MEDS: CARDIZEM PO SCH (09:11)
[2017-06-21] MEDS ORDERED: DELTASONE PO SCH (10:00)
--- NOTE | 2017-06-21 11:15 | Discharge Summary ---
Providers - Providers Date of Admission: 06/16/17 23:40 Date of discharge: 06/21/17 Attending physician: EAGLE DAVIDSON 06/17/17 12:05 Consult to Physician [CONS] Routine Consulting Provider: ROBB MERCHANT Reason For Exam: CHF Place consult to:: Notified:: Phone number called:: [phone] Was contact made?: Yes If yes, spoke with:: EDILMA Time called:: 12:30 Comment:: ELBERT Consult to Physician [CONS] Routine Consulting Provider: DI CAI Reason For Exam: MARCELO Place consult to:: Notified:: Phone number called:: [phone] Was contact made?: Yes If yes, spoke with:: ELVI Time called:: 12:52 Comment:: ELBERT 06/17/17 12:06 Consult to Physician [CONS] Routine Consulting Provider: JOSE L FRANCE Reason For Exam: ASTHMA EXACERBATION Place consult to:: Notified:: Phone number called:: [phone] Was contact made?: Yes If yes, spoke with:: GALE Time called:: 12:59 Comment:: ELBERT Primary care physician: MELI KIRKLAND Hospitalization Reason for admission: Acute respiratory failure Condition: Stable Pertinent studies: CXR, renal and bladder US Procedures: none Hospital course: 67-year-old woman with history of hypertension, diabetes, asthma, chronic renal disease was sent from [place] for evaluation of asthma. She was seen at the [facility] facility on June 07 for shortness of breath and cough productive of brown phlegm. She was given nebulizer treatment and oral steroids and discharged to home. She completed her medication for 5 days, his symptoms worsened so she returned to [place] today for further evaluation. Was commence don bronchodilator. discussed with case packer and sealer who agreed layne pt may be discharged today Disposition: -01 TO HOME OR SELFCARE Time spent for discharge: 33 min Core Measure Documentation - Palliative Care Palliative Care/ Comfort Measures: Not Applicable - Core Measures Any of the following diagnoses?: none Exam - Constitutional Vitals: Temp Pulse Resp BP Pulse Ox 98.6 F 98 H 22 166/61 98 06/21/17 07:43 06/21/17 09:11 06/21/17 09:11 06/21/17 09:11 06/20/17 22:00 General appearance: Present: no acute distress, well-nourished - EENT Eyes: Present: PERRL ENT: hearing intact, clear oral mucosa - Neck Neck: Present: supple, normal ROM - Respiratory Respiratory effort: normal Respiratory: bilateral: diminished - Cardiovascular Heart Sounds: Present: S1 & S2. Absent: rub, click - Extremities Extremities: pulses symmetrical, No edema Peripheral Pulses: within normal limits - Abdominal General gastrointestinal: Present: soft, non-tender, non-distended, normal bowel sounds - Integumentary Integumentary: Present: clear, warm, dry - Musculoskeletal Musculoskeletal: gait normal, strength equal bilaterally - Psychiatric Psychiatric: appropriate mood/affect, intact judgment & insight - Neurologic Neurologic: CNII-XII intact, moves all extremities Plan Activity: fall precautions Diet: regular Follow up with: MELI KIRKLAND MD [Primary Care Provider] - 7 Days Prescriptions: AtorvaSTATin [Lipitor] 40 mg PO QHS #30 tablet Azithromycin [Zithromax TAB] 500 mg PO QDAY #3 tablet Budesonide/Formoterol Fumarate [Symbicort 160-4.5 Mcg Inhaler] 10.2 gm IH BID # 1 hfa.aer.ad Carvedilol [Coreg] 25 mg PO BID #60 tablet Diltiazem [Cardizem] 60 mg PO BID #60 tablet Famotidine [Pepcid] 20 mg PO BID #60 tablet Folic Acid [Folvite] 1 mg PO 4XW #48 tablet hydrALAZINE [Apresoline TAB] 100 mg PO Q8H #90 tab HYDROcodone/APAP 7.5-325 [[place] 7.5-325 mg TAB] 1 each PO BID #20 tablet Inhaler, Assist Devices [Space Chamber Plus] 1 each MC BID #1 spacer Ipratropium/Albuterol Sulfate [DUONEB *Not for PRN Use*] 1 ampul IH Q6HRT #100 ampul.neb ISOSORBIDE MONOnitrate [Imdur ER] 30 mg PO DAILY #30 tablet predniSONE [Deltasone] 10 mg PO .TAPER #30 tab predniSONE [Deltasone] 10 mg PO QDAY #60 tablet Spironolactone [Aldactone] 25 mg PO DAILY #30 tablet Terazosin HCl 10 mg PO HS #30 capsule
--- NOTE | 2017-06-21 12:16 | Progress Note ---
Subjective Date of service: 06/21/17 Principal diagnosis: Acute Respiratory failure, DM, asthma exac Interval history: Still short of breath. No fever. Objective - Constitutional Vitals: Vital Signs - 12hr 06/21/17 06/21/17 06/21/17 07:26 07:36 07:43 Temperature 98.6 F Pulse Rate Pulse Rate [ 59 L 61 Anterior Bilateral Throughout] Respiratory 22 Rate Respiratory 20 20 Rate [Anterior Bilateral Throughout] Respiratory Rate [Back] Blood Pressure 166/61 O2 Sat by Pulse Oximetry 06/21/17 06/21/17 06/21/17 09:09 09:10 09:11 Temperature Pulse Rate 98 H 98 H 98 H Pulse Rate [ Anterior Bilateral Throughout] Respiratory 22 Rate Respiratory Rate [Anterior Bilateral Throughout] Respiratory Rate [Back] Blood Pressure 166/61 166/61 166/61 O2 Sat by Pulse Oximetry 06/21/17 10:00 Temperature Pulse Rate Pulse Rate [ Anterior Bilateral Throughout] Respiratory 20 Rate Respiratory Rate [Anterior Bilateral Throughout] Respiratory 18 Rate [Back] Blood Pressure O2 Sat by Pulse 96 Oximetry General appearance: Present: no acute distress, well-nourished - EENT Eyes: PERRL, EOM intact Ears: bilateral: normal - Neck Neck: supple, normal ROM - Respiratory Respiratory effort: normal Respiratory: bilateral: CTA - Breasts Breasts: normal - Cardiovascular Rhythm: regular Heart Sounds: Present: S1 & S2. Absent: gallop, rub Extremities: pulses intact, No edema, normal color, Full ROM - Gastrointestinal General gastrointestinal: Present: soft, non-tender, non-distended, normal bowel sounds - Genitourinary Female genitourinary: normal - Integumentary Integumentary: clear, warm, dry - Musculoskeletal Musculoskeletal: 1, strength equal bilaterally - Neurologic Neurologic: moves all extremities - Psychiatric Psychiatric: memory intact, appropriate mood/affect, intact judgment & insight - Labs CBC & Chem 7: 06/20/17 05:47 06/21/17 04:08 Labs: Abnormal lab results 06/20/17 06/20/17 06/21/17 Range/Units 15:49 22:01 04:08 Sodium 136 L (137-145) mmol/L Carbon Dioxide 17 L (22-30) mmol/L BUN 92 H (7-17) mg/dL Creatinine 2.3 H (0.7-1.2) mg/dL Glucose 163 H (65-100) mg/dL POC Glucose 152 H 158 H (70-105) Calcium 7.3 L (8.4-10.2) mg/dL 06/21/17 06/21/17 06/21/17 Range/Units 06:50 07:53 11:58 Sodium (137-145) mmol/L Carbon Dioxide (22-30) mmol/L BUN (7-17) mg/dL Creatinine (0.7-1.2) mg/dL Glucose (65-100) mg/dL POC Glucose 168 H 162 H 155 H (70-105) Calcium (8.4-10.2) mg/dL
--- NOTE | 2017-06-21 12:19 | Progress Note ---
Subjective Principal diagnosis: Acute Respiratory failure, DM, asthma exac Interval history: episode of emesis yesterday, nauseated presently Objective Vital Signs - 12hr 06/21/17 06/21/17 06/21/17 07:26 07:36 07:43 Temperature 98.6 F Pulse Rate Pulse Rate [ 59 L 61 Anterior Bilateral Throughout] Respiratory 22 Rate Respiratory 20 20 Rate [Anterior Bilateral Throughout] Respiratory Rate [Back] Blood Pressure 166/61 O2 Sat by Pulse Oximetry 06/21/17 06/21/17 06/21/17 09:09 09:10 09:11 Temperature Pulse Rate 98 H 98 H 98 H Pulse Rate [ Anterior Bilateral Throughout] Respiratory 22 Rate Respiratory Rate [Anterior Bilateral Throughout] Respiratory Rate [Back] Blood Pressure 166/61 166/61 166/61 O2 Sat by Pulse Oximetry 06/21/17 10:00 Temperature Pulse Rate Pulse Rate [ Anterior Bilateral Throughout] Respiratory 20 Rate Respiratory Rate [Anterior Bilateral Throughout] Respiratory 18 Rate [Back] Blood Pressure O2 Sat by Pulse 96 Oximetry Constitutional: no acute distress, alert Eyes: non-icteric ENT: oropharynx moist Neck: supple Effort: normal Ascultation: Bilateral: clear Cardiovascular: regular rate and rhythm (no mrg) Gastrointestinal: normoactive bowel sounds, soft, non-tender, non-distended Integumentary: normal Extremities: no cyanosis, no edema, pink and warm Neurologic: normal mental status, non-focal exam, pupils equal and round, CN II- XII normal Psychiatric: mood appropriate, affect normal CBC and BMP: 06/20/17 05:47 06/21/17 04:08 Abnormal lab findings: Abnormal Labs 06/16/17 06/16/17 06/17/17 22:05 22:05 05:02 WBC 16.7 H 19.0 H RBC Hgb Hct MCH 27 L 27 L Seg Neuts % (Manual) 93.0 H 84.0 H Lymphocytes % (Manual) 4.0 L 12.0 L Seg Neutrophils # Man 15.5 H 16.0 H Lymphocytes # (Manual) 0.7 L Sodium Chloride Carbon Dioxide BUN 64 H Creatinine 1.8 H Glucose 266 H POC Glucose Calcium 7.9 L Urine Creatinine Urine Total Protein 06/17/17 06/17/17 06/17/17 05:02 06:53 11:03 WBC RBC Hgb Hct MCH Seg Neuts % (Manual) Lymphocytes % (Manual) Seg Neutrophils # Man Lymphocytes # (Manual) Sodium Chloride Carbon Dioxide 19 L BUN 66 H Creatinine 1.9 H Glucose 356 H POC Glucose 357 H 318 H Calcium 8.1 L Urine Creatinine Urine Total Protein 06/17/17 06/17/17 06/18/17 16:26 21:39 05:14 WBC 27.7 H RBC 3.50 L Hgb 9.6 L Hct 29.5 L MCH Seg Neuts % (Manual) Lymphocytes % (Manual) Seg Neutrophils # Man Lymphocytes # (Manual) Sodium Chloride Carbon Dioxide BUN Creatinine Glucose POC Glucose 287 H 286 H Calcium Urine Creatinine Urine Total Protein 06/18/17 06/18/17 06/18/17 05:14 07:54 11:37 WBC RBC Hgb Hct MCH Seg Neuts % (Manual) Lymphocytes % (Manual) Seg Neutrophils # Man Lymphocytes # (Manual) Sodium Chloride Carbon Dioxide 21 L BUN 76 H Creatinine 2.5 H Glucose 210 H POC Glucose 204 H 275 H Calcium 7.9 L Urine Creatinine Urine Total Protein 06/18/17 06/18/17 06/18/17 16:02 16:46 22:51 WBC RBC Hgb Hct MCH Seg Neuts % (Manual) Lymphocytes % (Manual) Seg Neutrophils # Man Lymphocytes # (Manual) Sodium Chloride Carbon Dioxide 21 L BUN 83 H Creatinine 3.0 H Glucose 280 H POC Glucose 267 H 235 H Calcium 8.0 L Urine Creatinine Urine Total Protein 06/18/17 06/19/17 06/19/17 Unknown 05:16 05:16 WBC 27.1 H RBC 3.59 L Hgb 9.8 L Hct 30.1 L MCH 27 L Seg Neuts % (Manual) Lymphocytes % (Manual) Seg Neutrophils # Man Lymphocytes # (Manual) Sodium 136 L Chloride Carbon Dioxide 21 L BUN 82 H Creatinine 2.9 H Glucose 227 H POC Glucose Calcium 7.6 L Urine Creatinine 206.4 H Urine Total Protein 120 H 06/19/17 06/19/17 06/19/17 07:44 12:41 16:50 WBC RBC Hgb Hct MCH Seg Neuts % (Manual) Lymphocytes % (Manual) Seg Neutrophils # Man Lymphocytes # (Manual) Sodium Chloride Carbon Dioxide BUN Creatinine Glucose POC Glucose 202 H 193 H 239 H Calcium Urine Creatinine Urine Total Protein 06/19/17 06/20/17 06/20/17 22:55 05:47 05:47 WBC 22.9 H RBC Hgb Hct MCH Seg Neuts % (Manual) Lymphocytes % (Manual) Seg Neutrophils # Man Lymphocytes # (Manual) Sodium 130 L Chloride 94.6 L Carbon Dioxide 19 L BUN 89 H Creatinine 2.8 H Glucose 206 H POC Glucose 195 H Calcium 7.3 L Urine Creatinine Urine Total Protein 06/20/17 06/20/17 06/20/17 07:53 12:01 15:49 WBC RBC Hgb Hct MCH Seg Neuts % (Manual) Lymphocytes % (Manual) Seg Neutrophils # Man Lymphocytes # (Manual) Sodium Chloride Carbon Dioxide BUN Creatinine Glucose POC Glucose 208 H 150 H 152 H Calcium Urine Creatinine Urine Total Protein 06/20/17 06/21/17 06/21/17 22:01 04:08 06:50 WBC RBC Hgb Hct MCH Seg Neuts % (Manual) Lymphocytes % (Manual) Seg Neutrophils # Man Lymphocytes # (Manual) Sodium 136 L Chloride Carbon Dioxide 17 L BUN 92 H Creatinine 2.3 H Glucose 163 H POC Glucose 158 H 168 H Calcium 7.3 L Urine Creatinine Urine Total Protein 06/21/17 06/21/17 07:53 11:58 WBC RBC Hgb Hct MCH Seg Neuts % (Manual) Lymphocytes % (Manual) Seg Neutrophils # Man Lymphocytes # (Manual) Sodium Chloride Carbon Dioxide BUN Creatinine Glucose POC Glucose 162 H 155 H Calcium Urine Creatinine Urine Total Protein
[2017-06-21 14:54] VITALS: BP 161/61
== END 2017-06-21 16:48 | disposition home or self-care (01) | DRG 682 ==
LOC: ED 18:22 → 2B-ACE 23:40
PROVIDERS: ADMIT Internal Medicine; ATTEND Family Medicine
DX: N17.9 Acute kidney failure, unspecified (principal); J96.01 Acute respiratory failure with hypoxia; J45.902 Unspecified asthma with status asthmaticus; J44.1 Chronic obstructive pulmonary disease with (acute) exacerbation; J44.0 Chronic obstructive pulmonary disease with (acute) lower respiratory infection; I13.0 Hypertensive heart and chronic kidney disease with heart failure and stage 1 through stage 4 chronic kidney disease, or unspecified chronic kidney disease; F11.20 Opioid dependence, uncomplicated; E87.1 Hypo-osmolality and hyponatremia; N18.9 Chronic kidney disease, unspecified; E11.22 Type 2 diabetes mellitus with diabetic chronic kidney disease; R07.89 Other chest pain; I16.0 Hypertensive urgency; J20.9 Acute bronchitis, unspecified; I50.9 Heart failure, unspecified; E11.65 Type 2 diabetes mellitus with hyperglycemia; R79.89 Other specified abnormal findings of blood chemistry; T38.0X5A Adverse effect of glucocorticoids and synthetic analogues, initial encounter; D72.829 Elevated white blood cell count, unspecified; Z82.49 Family history of ischemic heart disease and other diseases of the circulatory system; Z83.3 Family history of diabetes mellitus; Y92.89 Other specified places as the place of occurrence of the external cause
CPT/HCPCS: 36415; 71045; 76770; 76857; 80048; 81001; 82140; 82570; 82962; 84156; 85007; 85025; 85027; 87040; 87400; 89050; 93005; 93010; 93306; 94640; 94760; 96365; A9270-GY; J0360; J0456; J1815; J1818; J2920; J3475; J7030; J7050; J7512